=== PATIENT | male | born 1965 | race African-American/Black ===

== ENCOUNTER 2017-09-22 13:06 | Emergency (ER) | payer OTHER ==
[~2017-09-22] VITALS: Ht 188 cm; Wt 91.0 kg
[2017-09-22] MEDS ORDERED: IPRATROPIUM/ALBUTEROL 0.5-3(2.5)MG/3ML NEB HHN ONE (13:30)
[2017-09-22 14:33] LABS: HEMATOCRIT. 44.3 % (42.0-52.0); HEMOGLOBIN. 14.7 g/dL (14.0-18.0); MEAN CORPUSCULAR HEMOGLOBIN 29.4 pg (28.0-32.0); MEAN CORPUSCULAR VOLUME 88.6 fL (80.0-94.0); MEAN PLATELET VOLUME 9.3 fl (7.4-10.4); PLATELET 155 x1000/uL (130-400); RED BLOOD CELL COUNT 4.99 mill/uL (4.7-6.1); RED CELL DISTRIBUTION WIDTH 14.8 % (11.6-14.6)
[2017-09-22 14:39] LABS: CHLORIDE 104 mEq/L (98-107)
[2017-09-22 14:43] LABS: INR 1.1; PARTIAL THROMBOPLASTIN TIME 27.2 sec (23.4-31.0)
[2017-09-22] MEDS ORDERED: ALBUTEROL (0.083%) 2.5MG/3ML NEB HHN STA (14:54)
[2017-09-22 15:19] LABS: PLATELET ESTIMATE NORMAL
[2017-09-22 15:40] LABS: CLARITY URINE CLEAR (CLEAR); COLOR URINE YELLOW (YELLOW); KETONES URINE TRACE (NEGATIVE); LEUKOCYTE ESTERASE URINE NEGATIVE (NEGATIVE); NITRITE URINE NEGATIVE (NEGATIVE); OCCULT BLOOD URINE NEGATIVE (NEGATIVE); PH URINE 6.5 (4.5-8.0); PROTEIN URINE TRACE (NEGATIVE); SPECIFIC GRAVITY URINE 1.029 (1.005-1.030)
[2017-09-22] MEDS ORDERED: PREDNISONE 20MG TABLET PO ONE (15:45)
[2017-09-22 18:06] VITALS: BP 103/76
== END 2017-09-22 18:10 | disposition home or self-care (01) ==
LOC: ER 13:54 → CANBEDREQ 16:25 → ER 18:10
DX: J45.909 Unspecified asthma, uncomplicated (principal); E11.9 Type 2 diabetes mellitus without complications; I10 Essential (primary) hypertension; Z95.0 Presence of cardiac pacemaker; Z88.0 Allergy status to penicillin
CPT/HCPCS: 36415; 71045; 80053; 81003; 83690; 83880; 84484; 85025; 85610; 85730; 93005; 94640; 99285; J7512; J7611; J7620; Z7610

== ENCOUNTER 2018-10-30 08:12 | Inpatient (IN) | payer OTHER ==
[~2018-10-30] VITALS: Ht 188 cm; Wt 89.6 kg
[2018-10-30 09:07] LABS: CHLORIDE 97 mEq/L (98-107)
[2018-10-30 09:09] LABS: BASOPHILS % 1.3 % (0.0-2.0); EOSINOPHILS % 5.1 % (0.0-5.0); HEMATOCRIT. 40.3 % (42.0-52.0); HEMOGLOBIN. 13.1 g/dL (14.0-18.0); LYMPHOCYTES % 22.7 % (20.0-50.0); MEAN CORPUSCULAR HEMOGLOBIN 30.4 pg (28.0-32.0); MEAN CORPUSCULAR VOLUME 93.8 fL (80.0-94.0); MEAN PLATELET VOLUME 9.7 fl (7.4-10.4); NEUTROPHILS % 59.9 % (40.0-76.0); PLATELET 194 x1000/uL (130-400); RED CELL DISTRIBUTION WIDTH 15.4 % (11.6-14.6)
[2018-10-30] MEDS ORDERED: METHYLPREDNISOLONE SOD SUCC 125 MG/2 ML VIAL IV ONE (09:30)
[2018-10-30] MEDS ORDERED: SODIUM CHLORIDE 0.9% 1000ML BAG (SEPSIS BOLUS) IV ONE (09:30)
[2018-10-30] MEDS ORDERED: ALBUTEROL (0.5%) 2.5MG/0.5ML NEB HHN ONE (09:30)
[2018-10-30] MEDS ORDERED: FUROSEMIDE 40MG/4ML VIAL IVP ONE (09:45)
[2018-10-30] MEDS ORDERED: NOREPINEPHRINE 4MG/250ML PMX 250 ML IV ONE (10:30)
[2018-10-30 11:29] LABS: INR 1.3
[2018-10-30 12:00] VITALS: BP 84/57
[2018-10-30] MEDS ORDERED: ACETAMINOPHEN 325MG TABLET PO PRN (13:00)
[2018-10-30] MEDS ORDERED: FURO20TA4 MT (13:25)
[2018-10-30] MEDS ORDERED: FURO40TA5 PO (13:25)
[2018-10-30] MEDS ORDERED: ATOR20TA65 MT (13:25)
[2018-10-30] MEDS ORDERED: AMIO100T4 PO (13:25)
[2018-10-30] MEDS ORDERED: SUCR1TAB MT (13:25)
[2018-10-30] MEDS ORDERED: PROP150T3 PO (13:25)
[2018-10-30] MEDS ORDERED: SACU1TAB7 MT (13:25)
[2018-10-30] MEDS ORDERED: MIDO10TA MT (13:25)
[2018-10-30] MEDS ORDERED: PANT40TA4 MT (13:25)
[2018-10-30] MEDS ORDERED: CHOL400T PO (13:25)
[2018-10-30 14:00] VITALS: BP 97/70
[2018-10-30] MEDS ORDERED: METHYLPREDNISOLONE SOD SUCC 40 MG/ML VIAL IV SCH (14:00)
[2018-10-30] MEDS ORDERED: DOBUTAMINE HCL 500 MG in DEXT 5% WATER 210 ML IV SCH (14:30)
[2018-10-30 16:00] VITALS: BP 82/57
[2018-10-30] MEDS ORDERED: BICT1TAB PO (16:16)
[2018-10-30] MEDS: IPRATROPIUM/ALBUTEROL 0.5-3(2.5)MG/3ML NEB HHN PRN ×2 (16:37→20:25)
[2018-10-30] MEDS: ENOXAPARIN 40MG/0.4ML SYR SUBCUT SCH (16:38)
[2018-10-30] MEDS: MONTELUKAST SODIUM 10MG TABLET PO SCH (17:43)
[2018-10-30] MEDS: SUCRALFATE 1G TABLET PO SCH (17:43)
[2018-10-30 18:00] VITALS: BP 89/56
[2018-10-30 18:52] LABS: CLARITY URINE CLEAR (CLEAR); COLOR URINE DARK YELLOW (YELLOW); KETONES URINE TRACE (NEGATIVE); LEUKOCYTE ESTERASE URINE NEGATIVE (NEGATIVE); NITRITE URINE NEGATIVE (NEGATIVE); OCCULT BLOOD URINE NEGATIVE (NEGATIVE); PROTEIN URINE 1+ (NEGATIVE); SPECIFIC GRAVITY URINE 1.016 (1.005-1.030)
[2018-10-30 19:15] LABS: *AMPHETAMINES SCREEN URINE NEGATIVE (NEGATIVE); *BARBITURATES SCREEN URINE NEGATIVE (NEGATIVE); *BENZODIAZEPINES SCREEN URINE NEGATIVE (NEGATIVE); *COCAINE SCREEN URINE NEGATIVE (NEGATIVE); METHADONE URINE SCREEN NEGATIVE (NEGATIVE); OPIATES URINE SCREEN NEGATIVE (NEGATIVE)
[2018-10-30 19:16] LABS: CANNABINOID URINE SCREEN NEGATIVE (NEGATIVE); PHENCYCLIDINE URINE SCREEN NEGATIVE (NEGATIVE)
[2018-10-30] MEDS: BUDESONIDE 0.5MG/2ML NEB HHN SCH (20:25)
[2018-10-30 20:44] VITALS: BP 78/53
[2018-10-30] MEDS ORDERED: ZOLPIDEM TARTRATE 5MG TABLET PO PRN (21:00)
[2018-10-30] MEDS: FUROSEMIDE 40MG/4ML VIAL IVP SCH (21:23)
[2018-10-30] MEDS: FAMOTIDINE 20MG/2ML VIAL IV SCH (21:23)
[2018-10-30] MEDS: DOPAMINE 400MG/250ML PREMIX 250 ML IV SCH (21:24)
[2018-10-31] VITALS (13 sets, daily range): BP systolic 80–112; BP diastolic 49–75
[2018-10-31 07:00] LABS: BASOPHILS % 0.1 % (0.0-2.0); HEMATOCRIT. 35.5 % (42.0-52.0); HEMOGLOBIN. 11.9 g/dL (14.0-18.0); LYMPHOCYTES % 7.4 % (20.0-50.0); MEAN CORPUSCULAR HEMOGLOBIN 31.1 pg (28.0-32.0); MEAN CORPUSCULAR VOLUME 92.6 fL (80.0-94.0); MEAN PLATELET VOLUME 9.5 fl (7.4-10.4); MONOCYTES % 4.6 % (2.0-8.0); NEUTROPHILS % 87.9 % (40.0-76.0); PLATELET 174 x1000/uL (130-400); RED BLOOD CELL COUNT 3.83 mill/uL (4.7-6.1); RED CELL DISTRIBUTION WIDTH 14.9 % (11.6-14.6)
[2018-10-31] MEDS: FUROSEMIDE 40MG/4ML VIAL IVP SCH ×3 (08:48→21:00)
[2018-10-31] MEDS: FAMOTIDINE 20MG/2ML VIAL IV SCH ×2 (08:48→20:32)
[2018-10-31] MEDS: SUCRALFATE 1G TABLET PO SCH ×3 (08:48→18:11)
[2018-10-31] MEDS: ENOXAPARIN 40MG/0.4ML SYR SUBCUT SCH (08:49)
[2018-10-31] MEDS: AMIODARONE HCL 200 MG TABLET PO SCH (08:50)
[2018-10-31] MEDS ORDERED: FUROSEMIDE 40MG/4ML VIAL IVP SCH (09:00)
[2018-10-31 09:36] LABS: PHOSPHORUS 3.7 mg/dL (2.5-4.9)
[2018-10-31] MEDS ORDERED: ENOXAPARIN 60MG/0.6ML SYR SUBCUT NR (11:45)
[2018-10-31] MEDS: BUDESONIDE 0.5MG/2ML NEB HHN SCH ×2 (12:11→20:30)
[2018-10-31] MEDS: IPRATROPIUM/ALBUTEROL 0.5-3(2.5)MG/3ML NEB HHN PRN (12:11)
[2018-10-31] MEDS: DOBUTAMINE 250MG PREMIX 250 ML IV PRN (13:05)
[2018-10-31] MEDS: MONTELUKAST SODIUM 10MG TABLET PO SCH (18:11)
[2018-10-31] MEDS: APIXABAN 5 MG TABLET PO SCH (20:32)
[2018-10-31] MEDS: LORAZEPAM 1MG TABLET PO PRN (20:32)
[2018-10-31] MEDS: DOPAMINE 400MG/250ML PREMIX 250 ML IV SCH (20:43)
[2018-10-31] MEDS ORDERED: ENOXAPARIN 100MG/ML SYR SUBCUT SCH (21:00)
[2018-11-01] VITALS (13 sets, daily range): BP systolic 92–114; BP diastolic 49–69
[2018-11-01 06:35] LABS: EOSINOPHILS % 2.3 % (0.0-5.0); HEMATOCRIT. 37.1 % (42.0-52.0); HEMOGLOBIN. 12.4 g/dL (14.0-18.0); LYMPHOCYTES % 10.8 % (20.0-50.0); MEAN CORPUSCULAR HEMOGLOBIN 31.1 pg (28.0-32.0); MEAN CORPUSCULAR VOLUME 92.7 fL (80.0-94.0); MEAN PLATELET VOLUME 9.2 fl (7.4-10.4); MONOCYTES % 9.1 % (2.0-8.0); NEUTROPHILS % 76.8 % (40.0-76.0); PLATELET 177 x1000/uL (130-400); RED BLOOD CELL COUNT 3.99 mill/uL (4.7-6.1); RED CELL DISTRIBUTION WIDTH 15.1 % (11.6-14.6)
[2018-11-01 07:37] LABS: PHOSPHORUS 4.4 mg/dL (2.5-4.9)
[2018-11-01] MEDS: AMIODARONE HCL 200 MG TABLET PO SCH (09:00)
[2018-11-01 09:13] LABS: ABSOLUTE LYMPHOCYTES 0.7 x10E3/uL (0.7-3.1); ABSOLUTE MONOCYTES 0.1 x10E3/uL (0.1-0.9); ABSOLUTE NEUTROPHILS 3.6 x10E3/uL (1.4-7.0); BASOPHILS 1 % (Not Estab.); HEMATOCRIT 41.2 % (37.5-51.0); HEMOGLOBIN 12.9 g/dL (13.0-17.7); IMMATURE GRANULOCYTES 0 % (Not Estab.); LYMPHOCYTES 16 % (Not Estab.); MEAN CORPUSCULAR HEMOGLOBIN 29.6 pg (26.6-33.0); MEAN CORPUSCULAR HGB CONC. 31.3 g/dL (31.5-35.7); MEAN CORPUSCULAR VOLUME 95 fL (79-97); MONOCYTES 3 % (Not Estab.); NEUTROPHILS 80 % (Not Estab.); PLATELETS 205 x10E3/uL (150-379); RBC 4.36 x10E6/uL (4.14-5.80); RED CELL DISTRIBUTION WIDTH 15.4 % (12.3-15.4); WBC 4.4 x10E3/uL (3.4-10.8)
[2018-11-01] MEDS: BUDESONIDE 0.5MG/2ML NEB HHN SCH ×2 (09:23→20:34)
[2018-11-01] MEDS: FAMOTIDINE 20MG/2ML VIAL IV SCH ×2 (10:43→21:04)
[2018-11-01] MEDS: SUCRALFATE 1G TABLET PO SCH ×3 (10:43→17:28)
[2018-11-01] MEDS: APIXABAN 5 MG TABLET PO SCH ×2 (10:43→21:04)
[2018-11-01] MEDS: FUROSEMIDE 100MG/10ML VIAL IVP SCH (11:49)
[2018-11-01 13:12] LABS: % CD 4 POS. LYMPHOCYTES 10.3 % (30.8-58.5); % CD 8 POS. LYMPH 73.3 % (12.0-35.5); ABSOLUTE CD 3 581 /uL (622-2402); ABSOLUTE CD 4 HELPER 72 /uL (359-1519); ABSOLUTE CD 8 SUPPRESSOR 513 /uL (109-897); CD4/CD8 RATIO 0.14 (0.92-3.72)
[2018-11-01] MEDS: MONTELUKAST SODIUM 10MG TABLET PO SCH (17:28)
[2018-11-01] MEDS: SULFAMETHOXAZOLE/TRIMETHOPRIM 800/160MG TABLET PO SCH (17:28)
[2018-11-01] MEDS: DOBUTAMINE 250MG PREMIX 250 ML IV PRN (17:30)
[2018-11-01] MEDS: DOPAMINE 400MG/250ML PREMIX 250 ML IV SCH (17:31)
[2018-11-01] MEDS ORDERED: ATOR20TA65 MT (21:46)
[2018-11-01] MEDS ORDERED: BICT1TAB PO (21:47)
[2018-11-01] MEDS ORDERED: CHOL400C8 MT (21:49)
[2018-11-01] MEDS ORDERED: FURO-151 MT (21:50)
[2018-11-01] MEDS ORDERED: PROP150T3 MT (21:51)
[2018-11-01] MEDS ORDERED: ASPI-1158 MT (21:51)
[2018-11-01] MEDS ORDERED: ALBU90AE INH (21:53)
[2018-11-02] VITALS (12 sets, daily range): BP systolic 71–118; BP diastolic 43–70
[2018-11-02] MEDS: LORAZEPAM 1MG TABLET PO PRN (01:46)
[2018-11-02] MEDS: DOBUTAMINE 250MG PREMIX 250 ML IV PRN ×2 (02:46→13:25)
[2018-11-02 06:22] LABS: BASOPHILS % 1.3 % (0.0-2.0); EOSINOPHILS % 5.4 % (0.0-5.0); HEMATOCRIT. 39.6 % (42.0-52.0); HEMOGLOBIN. 12.8 g/dL (14.0-18.0); LYMPHOCYTES % 15.1 % (20.0-50.0); MEAN CORPUSCULAR HEMOGLOBIN 30.4 pg (28.0-32.0); MEAN CORPUSCULAR VOLUME 93.7 fL (80.0-94.0); MEAN PLATELET VOLUME 8.5 fl (7.4-10.4); NEUTROPHILS % 66.2 % (40.0-76.0); PLATELET 176 x1000/uL (130-400); RED BLOOD CELL COUNT 4.23 mill/uL (4.7-6.1); RED CELL DISTRIBUTION WIDTH 15.3 % (11.6-14.6)
[2018-11-02] MEDS: SULFAMETHOXAZOLE/TRIMETHOPRIM 800/160MG TABLET PO SCH (08:35)
[2018-11-02] MEDS: SUCRALFATE 1G TABLET PO SCH ×3 (08:35→17:25)
[2018-11-02] MEDS: FAMOTIDINE 20MG/2ML VIAL IV SCH ×2 (08:35→20:55)
[2018-11-02] MEDS: FUROSEMIDE 100MG/10ML VIAL IVP SCH (08:35)
[2018-11-02] MEDS: AMIODARONE HCL 200 MG TABLET PO SCH (08:35)
[2018-11-02] MEDS: APIXABAN 5 MG TABLET PO SCH ×2 (08:38→20:55)
[2018-11-02] MEDS: DOPAMINE 400MG/250ML PREMIX 250 ML IV SCH (09:19)
[2018-11-02] MEDS: BUDESONIDE 0.5MG/2ML NEB HHN SCH (09:55)
[2018-11-02] MEDS: IPRATROPIUM/ALBUTEROL 0.5-3(2.5)MG/3ML NEB HHN PRN ×2 (09:55→21:31)
[2018-11-02] MEDS: MONTELUKAST SODIUM 10MG TABLET PO SCH (17:25)
[2018-11-03] VITALS (12 sets, daily range): BP systolic 77–106; BP diastolic 48–65
[2018-11-03] MEDS: DOBUTAMINE 250MG PREMIX 250 ML IV PRN (00:51)
[2018-11-03] MEDS: LORAZEPAM 1MG TABLET PO PRN (00:58)
[2018-11-03 06:10] LABS: BASOPHILS % 1.2 % (0.0-2.0); EOSINOPHILS % 6.7 % (0.0-5.0); HEMATOCRIT. 37.9 % (42.0-52.0); HEMOGLOBIN. 12.4 g/dL (14.0-18.0); LYMPHOCYTES % 18.3 % (20.0-50.0); MEAN CORPUSCULAR HEMOGLOBIN 30.4 pg (28.0-32.0); MEAN CORPUSCULAR VOLUME 93.1 fL (80.0-94.0); MEAN PLATELET VOLUME 8.4 fl (7.4-10.4); MONOCYTES % 13.9 % (2.0-8.0); NEUTROPHILS % 59.9 % (40.0-76.0); PLATELET 180 x1000/uL (130-400); RED BLOOD CELL COUNT 4.07 mill/uL (4.7-6.1); RED CELL DISTRIBUTION WIDTH 15.1 % (11.6-14.6)
[2018-11-03 08:29] LABS: CHLORIDE 100 mEq/L (98-107)
[2018-11-03] MEDS: IPRATROPIUM/ALBUTEROL 0.5-3(2.5)MG/3ML NEB HHN PRN ×2 (08:32→21:59)
[2018-11-03 08:36] LABS: PHOSPHORUS 3.2 mg/dL (2.5-4.9)
[2018-11-03] MEDS: FAMOTIDINE 20MG/2ML VIAL IV SCH ×2 (08:51→20:50)
[2018-11-03] MEDS: AMIODARONE HCL 200 MG TABLET PO SCH (08:52)
[2018-11-03] MEDS: SULFAMETHOXAZOLE/TRIMETHOPRIM 800/160MG TABLET PO SCH (08:52)
[2018-11-03] MEDS: SUCRALFATE 1G TABLET PO SCH ×3 (08:52→18:31)
[2018-11-03] MEDS: APIXABAN 5 MG TABLET PO SCH ×2 (08:52→20:50)
[2018-11-03] MEDS: FUROSEMIDE 100MG/10ML VIAL IVP SCH (08:52)
[2018-11-03] MEDS: DOPAMINE 400MG/250ML PREMIX 250 ML IV SCH (15:30)
[2018-11-03] MEDS: MONTELUKAST SODIUM 10MG TABLET PO SCH (16:45)
[2018-11-03] MEDS: MAGNESIUM/ALUMINUM HYDROXIDE/SIMETHICONE 30ML UDC PO PRN ×2 (16:45→22:06)
[2018-11-04] VITALS (14 sets, daily range): BP systolic 66–122; BP diastolic 46–67
[2018-11-04] MEDS: LORAZEPAM 1MG TABLET PO PRN (01:29)
[2018-11-04] MEDS: IPRATROPIUM/ALBUTEROL 0.5-3(2.5)MG/3ML NEB HHN PRN ×4 (04:59→21:11)
[2018-11-04 06:49] LABS: BASOPHILS % 1.1 % (0.0-2.0); EOSINOPHILS % 1.5 % (0.0-5.0); HEMATOCRIT. 38.6 % (42.0-52.0); HEMOGLOBIN. 12.6 g/dL (14.0-18.0); LYMPHOCYTES % 20.9 % (20.0-50.0); MEAN CORPUSCULAR HEMOGLOBIN 30.3 pg (28.0-32.0); MEAN CORPUSCULAR VOLUME 93.1 fL (80.0-94.0); MEAN PLATELET VOLUME 9.4 fl (7.4-10.4); MONOCYTES % 11.9 % (2.0-8.0); NEUTROPHILS % 64.6 % (40.0-76.0); PLATELET 194 x1000/uL (130-400); RED BLOOD CELL COUNT 4.15 mill/uL (4.7-6.1); RED CELL DISTRIBUTION WIDTH 15.1 % (11.6-14.6)
[2018-11-04 07:13] LABS: PHOSPHORUS 2.8 mg/dL (2.5-4.9)
[2018-11-04] MEDS: FAMOTIDINE 20MG/2ML VIAL IV SCH ×2 (08:51→21:02)
[2018-11-04] MEDS: SUCRALFATE 1G TABLET PO SCH ×3 (08:52→17:56)
[2018-11-04] MEDS: SULFAMETHOXAZOLE/TRIMETHOPRIM 800/160MG TABLET PO SCH (08:52)
[2018-11-04] MEDS: APIXABAN 5 MG TABLET PO SCH ×2 (08:52→21:02)
[2018-11-04] MEDS: AMIODARONE HCL 200 MG TABLET PO SCH (08:52)
[2018-11-04] MEDS: MAGNESIUM/ALUMINUM HYDROXIDE/SIMETHICONE 30ML UDC PO PRN (09:51)
[2018-11-04] MEDS ORDERED: FUROSEMIDE 40MG/4ML VIAL IVP SCH (12:00)
[2018-11-04] MEDS: MONTELUKAST SODIUM 10MG TABLET PO SCH (17:56)
[2018-11-04] MEDS: FUROSEMIDE 40MG/4ML VIAL IVP SCH (17:56)
[2018-11-05] VITALS (8 sets, daily range): BP systolic 81–98; BP diastolic 40–64
[2018-11-05] MEDS: IPRATROPIUM/ALBUTEROL 0.5-3(2.5)MG/3ML NEB HHN PRN ×3 (01:14→10:30)
[2018-11-05 06:49] LABS: BASOPHILS % 0.9 % (0.0-2.0); EOSINOPHILS % 0.6 % (0.0-5.0); HEMATOCRIT. 36.8 % (42.0-52.0); HEMOGLOBIN. 12.1 g/dL (14.0-18.0); LYMPHOCYTES % 15.4 % (20.0-50.0); MEAN CORPUSCULAR HEMOGLOBIN 30.6 pg (28.0-32.0); MEAN CORPUSCULAR VOLUME 92.8 fL (80.0-94.0); MONOCYTES % 9.9 % (2.0-8.0); NEUTROPHILS % 73.2 % (40.0-76.0); PLATELET 193 x1000/uL (130-400); RED BLOOD CELL COUNT 3.97 mill/uL (4.7-6.1)
[2018-11-05 07:15] LABS: CHLORIDE 94 mEq/L (98-107)
[2018-11-05] MEDS: FUROSEMIDE 40MG/4ML VIAL IVP SCH (08:28)
[2018-11-05] MEDS: SUCRALFATE 1G TABLET PO SCH ×2 (08:29→12:32)
[2018-11-05] MEDS: AMIODARONE HCL 200 MG TABLET PO SCH (08:29)
[2018-11-05] MEDS: FAMOTIDINE 20MG/2ML VIAL IV SCH (08:29)
[2018-11-05] MEDS: SULFAMETHOXAZOLE/TRIMETHOPRIM 800/160MG TABLET PO SCH (08:29)
[2018-11-05] MEDS: APIXABAN 5 MG TABLET PO SCH (09:19)
[2018-11-05] MEDS: MAGNESIUM/ALUMINUM HYDROXIDE/SIMETHICONE 30ML UDC PO PRN (10:09)
[2018-11-06] MEDS ORDERED: FAMOTIDINE 20MG/2ML VIAL IV SCH (09:00)
[2018-11-07] MEDS ORDERED: APIXABAN 5 MG TABLET PO SCH (20:00)
== END 2018-11-05 16:09 | disposition home or self-care (01) | DRG 469 ==
LOC: ER 08:12 → 5EST 10:09 → EDBEDREQ 10:11 → EDBEDREQSVC 10:11 → ENRESERV 11:28
PROVIDERS: ADMIT Internal Medicine; ATTEND Internal Medicine
PROC: 02HV33Z Insertion of Infusion Device into Superior Vena Cava, Percutaneous Approach (ICD-10-PCS; principal; 2018-10-30)
PROC: B548ZZA Ultrasonography of Superior Vena Cava, Guidance (ICD-10-PCS; 2018-10-30)
PROC: 05H533Z Insertion of Infusion Device into Right Subclavian Vein, Percutaneous Approach (ICD-10-PCS; 2018-11-01)
PROC: B546ZZA Ultrasonography of Right Subclavian Vein, Guidance (ICD-10-PCS; 2018-11-01)
DX: N17.0 Acute kidney failure with tubular necrosis (principal); J96.00 Acute respiratory failure, unspecified whether with hypoxia or hypercapnia; I50.43 Acute on chronic combined systolic (congestive) and diastolic (congestive) heart failure; I95.9 Hypotension, unspecified; B20 Human immunodeficiency virus [HIV] disease; E11.22 Type 2 diabetes mellitus with diabetic chronic kidney disease; I82.402 Acute embolism and thrombosis of unspecified deep veins of left lower extremity; E87.1 Hypo-osmolality and hyponatremia; I13.0 Hypertensive heart and chronic kidney disease with heart failure and stage 1 through stage 4 chronic kidney disease, or unspecified chronic kidney disease; I82.412 Acute embolism and thrombosis of left femoral vein; K21.9 Gastro-esophageal reflux disease without esophagitis; I42.0 Dilated cardiomyopathy; J45.901 Unspecified asthma with (acute) exacerbation; N18.2 Chronic kidney disease, stage 2 (mild); E87.6 Hypokalemia; I25.10 Atherosclerotic heart disease of native coronary artery without angina pectoris; I48.0 Paroxysmal atrial fibrillation; I34.0 Nonrheumatic mitral (valve) insufficiency; Z60.2 Problems related to living alone; I25.2 Old myocardial infarction; Z82.49 Family history of ischemic heart disease and other diseases of the circulatory system; Z95.810 Presence of automatic (implantable) cardiac defibrillator; Z88.0 Allergy status to penicillin; Z79.899 Other long term (current) drug therapy
CPT/HCPCS: 36415; 36569; 71045; 76770; 76937; 78580; 80048; 80061; 80076; 80305; 82550; 82570; 83605; 83735; 83880; 83935; 84100; 84484; 84540; 85379; 86359; 86360; 93005; 93306; 93970; 94640; 96372; 96374; 96375; 99291; C1725; J1250; J1265; J1650; J1940; J2930; J3490; J7030; J7040; J7060; J7620; J7626

== ENCOUNTER 2018-11-18 16:38 | Inpatient (IN) | payer OTHER ==
[~2018-11-18] VITALS: Ht 188 cm; Wt 137.0 kg
[~2018-11-18 16:38] MED LIST: ALBU90AE INH; AMIO100T4 PO; ATOR20TA65 MT; BICT1TAB PO; CHOL400C8 MT; FURO-151 MT; MIDO10TA MT; PANT40TA4 MT; PROP150T3 MT; SACU1TAB7 MT; SUCR1TAB MT
[2018-11-18] MEDS ORDERED: MORPHINE SULFATE 4 MG/ML CPJ (NOT FOR IM USE) IV STA (16:59)
[2018-11-18 17:33] LABS: CHLORIDE 101 mEq/L (98-107)
[2018-11-18 17:35] LABS: BASOPHILS % 1.2 % (0.0-2.0); EOSINOPHILS % 2.8 % (0.0-5.0); HEMATOCRIT. 38.5 % (42.0-52.0); HEMOGLOBIN. 12.5 g/dL (14.0-18.0); MEAN CORPUSCULAR HEMOGLOBIN 30.5 pg (28.0-32.0); MEAN CORPUSCULAR VOLUME 93.9 fL (80.0-94.0); MEAN PLATELET VOLUME 9.6 fl (7.4-10.4); MONOCYTES % 10.3 % (2.0-8.0); NEUTROPHILS % 63.7 % (40.0-76.0); PLATELET 185 x1000/uL (130-400); RED BLOOD CELL COUNT 4.11 mill/uL (4.7-6.1)
[2018-11-18] MEDS ORDERED: ASPIRIN 81MG TABLET PO ONE (17:45)
[2018-11-18] MEDS ORDERED: FUROSEMIDE 40MG/4ML VIAL IVP ONE (20:45)
[2018-11-19] VITALS (13 sets, daily range): BP systolic 84–112; BP diastolic 47–71
[2018-11-19] MEDS ORDERED: HYDROCODONE/ACETAMINOPHEN 5/325MG TABLET PO PRN (03:15)
[2018-11-19] MEDS ORDERED: ALBUTEROL 6.7GM HFA INHALER ORI PRN (03:15)
[2018-11-19] MEDS ORDERED: NON FORMULARY PATIENT HOME MED XX SCH (03:15)
[2018-11-19] MEDS: IPRATROPIUM/ALBUTEROL 0.5-3(2.5)MG/3ML NEB HHN PRN (04:49)
[2018-11-19] MEDS: PANTOPRAZOLE 40MG DR TABLET PO SCH (06:14)
[2018-11-19] MEDS: SUCRALFATE 1G TABLET PO SCH ×4 (06:14→21:43)
[2018-11-19] MEDS: MIDODRINE HCL 5MG TABLET PO SCH ×3 (06:14→21:44)
[2018-11-19] MEDS: CHOLECALCIFEROL (VIT D3) 400 UNIT TABLET PO SCH (08:52)
[2018-11-19] MEDS: AMIODARONE HCL 200 MG TABLET PO SCH (08:52)
[2018-11-19] MEDS: ENOXAPARIN 40MG/0.4ML SYR SUBCUT SCH (08:53)
[2018-11-19] MEDS: SACUBITRIL/VALSARTAN 49MG/51MG TABLET PO SCH ×2 (08:54→21:43)
[2018-11-19] MEDS ORDERED: FUROSEMIDE 40MG/4ML VIAL IVP SCH (09:00)
[2018-11-19] MEDS ORDERED: PROPAFENONE HCL 150MG TABLET PO SCH ×2 (09:00)
[2018-11-19] MEDS ORDERED: FUROSEMIDE 40MG TABLET PO SCH (09:00)
[2018-11-19 09:15] LABS: BG BASE EXCESS 0.5 mmol/L (-2.0-2.0); BG CARBOXYHEMOGLOBIN 0.7 % (0.5-1.5); BG DEOXYHEMOGLOBIN 6.3 % (0.0-5.0); BG FRACTION INSPIRED OXYGEN 21; BG HCO3 ACT 25.2 mmol/L (22.0-26.0); BG METHEMOGLOBIN 0.2 % (0.0-1.5); BG OXYGEN SATURATION 93.6 % (92.0-98.5); BG OXYHEMOGLOBIN 92.8 % (94.0-97.0); BG PCO2 41.1 mmHg (35.0-45.0); BG PH 7.406 (7.350-7.450); BG PO2 73.4 mmHg (75.0-100.0); BG SAMPLE SITE LEFT RADIAL; BG TOTAL HEMOGLOBIN 12.4 g/dL (12.0-18.0); BG VENT MODE ROOM AIR
[2018-11-19 09:24] LABS: BASOPHILS % 0.7 % (0.0-2.0); EOSINOPHILS % 4.7 % (0.0-5.0); HEMATOCRIT. 35.3 % (42.0-52.0); HEMOGLOBIN. 11.4 g/dL (14.0-18.0); LYMPHOCYTES % 13.9 % (20.0-50.0); MEAN CORPUSCULAR HEMOGLOBIN 30.3 pg (28.0-32.0); MEAN CORPUSCULAR VOLUME 93.9 fL (80.0-94.0); MEAN PLATELET VOLUME 9.4 fl (7.4-10.4); MONOCYTES % 10.5 % (2.0-8.0); NEUTROPHILS % 70.2 % (40.0-76.0); PLATELET 148 x1000/uL (130-400); RED BLOOD CELL COUNT 3.76 mill/uL (4.7-6.1); RED CELL DISTRIBUTION WIDTH 15.7 % (11.6-14.6)
[2018-11-19] MEDS: ALBUTEROL (0.083%) 2.5MG/3ML NEB HHN PRN (12:06)
[2018-11-19] MEDS: FUROSEMIDE 40MG/4ML VIAL IVP SCH ×2 (15:45→21:43)
[2018-11-19 23:43] LABS: *AMPHETAMINES SCREEN URINE NEGATIVE (NEGATIVE)
[2018-11-19 23:44] LABS: *BARBITURATES SCREEN URINE NEGATIVE (NEGATIVE); *BENZODIAZEPINES SCREEN URINE NEGATIVE (NEGATIVE); *COCAINE SCREEN URINE NEGATIVE (NEGATIVE); METHADONE URINE SCREEN NEGATIVE (NEGATIVE); OPIATES URINE SCREEN NEGATIVE (NEGATIVE); PHENCYCLIDINE URINE SCREEN NEGATIVE (NEGATIVE)
[2018-11-19 23:46] LABS: CANNABINOID URINE SCREEN NEGATIVE (NEGATIVE)
[2018-11-20] VITALS (12 sets, daily range): BP systolic 71–113; BP diastolic 38–76
[2018-11-20] MEDS: ALBUTEROL (0.083%) 2.5MG/3ML NEB HHN PRN (00:17)
[2018-11-20] MEDS: PANTOPRAZOLE 40MG DR TABLET PO SCH (06:16)
[2018-11-20] MEDS: SUCRALFATE 1G TABLET PO SCH ×4 (06:16→21:27)
[2018-11-20] MEDS: MIDODRINE HCL 5MG TABLET PO SCH ×2 (06:17→13:11)
[2018-11-20 06:43] LABS: BASOPHILS % 3.5 % (0.0-2.0); EOSINOPHILS % 6.4 % (0.0-5.0); HEMATOCRIT. 34.9 % (42.0-52.0); HEMOGLOBIN. 12.1 g/dL (14.0-18.0); LYMPHOCYTES % 23.6 % (20.0-50.0); MEAN CORPUSCULAR HEMOGLOBIN 32.3 pg (28.0-32.0); MEAN CORPUSCULAR VOLUME 92.9 fL (80.0-94.0); MEAN PLATELET VOLUME 9.6 fl (7.4-10.4); MONOCYTES % 11.6 % (2.0-8.0); NEUTROPHILS % 54.9 % (40.0-76.0); PLATELET 149 x1000/uL (130-400); RED BLOOD CELL COUNT 3.76 mill/uL (4.7-6.1); RED CELL DISTRIBUTION WIDTH 15.7 % (11.6-14.6)
[2018-11-20] MEDS: IPRATROPIUM/ALBUTEROL 0.5-3(2.5)MG/3ML NEB HHN PRN ×2 (08:43→21:33)
[2018-11-20] MEDS: CHOLECALCIFEROL (VIT D3) 400 UNIT TABLET PO SCH (09:00)
[2018-11-20] MEDS: AMIODARONE HCL 200 MG TABLET PO SCH (09:00)
[2018-11-20] MEDS: SACUBITRIL/VALSARTAN 49MG/51MG TABLET PO SCH ×2 (09:00→10:04)
[2018-11-20] MEDS: FUROSEMIDE 40MG/4ML VIAL IVP SCH ×3 (09:00→16:38)
[2018-11-20] MEDS: ENOXAPARIN 40MG/0.4ML SYR SUBCUT SCH (09:00)
[2018-11-20] MEDS ORDERED: DOPAMINE 800MG PREMIX (DOUBLE) 250 ML IV SCH (16:00)
[2018-11-20] MEDS: APIXABAN 5 MG TABLET PO SCH (21:27)
[2018-11-21] VITALS (12 sets, daily range): BP systolic 84–103; BP diastolic 53–75
[2018-11-21] MEDS: SUCRALFATE 1G TABLET PO SCH ×4 (05:58→20:59)
[2018-11-21] MEDS: PANTOPRAZOLE 40MG DR TABLET PO SCH (05:58)
[2018-11-21 07:12] LABS: BASOPHILS % 1.3 % (0.0-2.0); EOSINOPHILS % 5.4 % (0.0-5.0); HEMATOCRIT. 36.1 % (42.0-52.0); HEMOGLOBIN. 11.8 g/dL (14.0-18.0); LYMPHOCYTES % 17.2 % (20.0-50.0); MEAN CORPUSCULAR HEMOGLOBIN 30.3 pg (28.0-32.0); MEAN CORPUSCULAR VOLUME 92.9 fL (80.0-94.0); MEAN PLATELET VOLUME 9.9 fl (7.4-10.4); NEUTROPHILS % 66.1 % (40.0-76.0); PLATELET 144 x1000/uL (130-400); RED BLOOD CELL COUNT 3.88 mill/uL (4.7-6.1)
[2018-11-21] MEDS: IPRATROPIUM/ALBUTEROL 0.5-3(2.5)MG/3ML NEB HHN PRN ×3 (08:43→21:28)
[2018-11-21] MEDS: ONDANSETRON HCL 4MG/2ML INJ IV PRN (08:57)
[2018-11-21] MEDS: FUROSEMIDE 40MG/4ML VIAL IVP SCH (08:57)
[2018-11-21] MEDS: AMIODARONE HCL 200 MG TABLET PO SCH (08:58)
[2018-11-21] MEDS: CHOLECALCIFEROL (VIT D3) 400 UNIT TABLET PO SCH (08:58)
[2018-11-21] MEDS: APIXABAN 5 MG TABLET PO SCH ×2 (08:58→20:59)
[2018-11-21] MEDS: PROPAFENONE HCL 150MG TABLET PO SCH ×2 (09:01→16:34)
[2018-11-21] MEDS: POTASSIUM CHLORIDE 20MEQ TABLET SR PO SCH (12:12)
[2018-11-21] MEDS ORDERED: SODIUM CHLORIDE 0.9% 250 ML IV ONE (13:00)
[2018-11-21] MEDS: DOBUTAMINE HCL 500 MG in DEXT 5% WATER 210 ML IV SCH (13:18)
[2018-11-21] MEDS: FAMOTIDINE 20MG TABLET PO SCH ×2 (13:24→20:59)
[2018-11-21] MEDS: ACETAMINOPHEN 325MG TABLET PO PRN (22:52)
[2018-11-22] VITALS (12 sets, daily range): BP systolic 85–111; BP diastolic 47–71
[2018-11-22] MEDS: DOBUTAMINE HCL 500 MG in DEXT 5% WATER 210 ML IV SCH (02:42)
[2018-11-22] MEDS: SUCRALFATE 1G TABLET PO SCH ×4 (06:39→21:47)
[2018-11-22 06:55] LABS: BASOPHILS % 1.5 % (0.0-2.0); EOSINOPHILS % 5.5 % (0.0-5.0); HEMATOCRIT. 33.5 % (42.0-52.0); LYMPHOCYTES % 18.4 % (20.0-50.0); MEAN CORPUSCULAR HEMOGLOBIN 30.9 pg (28.0-32.0); MEAN CORPUSCULAR VOLUME 93.9 fL (80.0-94.0); MEAN PLATELET VOLUME 9.9 fl (7.4-10.4); MONOCYTES % 13.3 % (2.0-8.0); NEUTROPHILS % 61.3 % (40.0-76.0); PLATELET 127 x1000/uL (130-400); RED BLOOD CELL COUNT 3.57 mill/uL (4.7-6.1); RED CELL DISTRIBUTION WIDTH 15.6 % (11.6-14.6)
[2018-11-22 07:20] LABS: CHLORIDE 103 mEq/L (98-107)
[2018-11-22] MEDS ORDERED: FAMOTIDINE 20MG TABLET PO SCH (09:00)
[2018-11-22] MEDS: FUROSEMIDE 40MG/4ML VIAL IVP SCH (09:11)
[2018-11-22] MEDS: POTASSIUM CHLORIDE 20MEQ TABLET SR PO SCH (09:15)
[2018-11-22] MEDS: FAMOTIDINE 20MG TABLET PO SCH ×2 (09:15→21:47)
[2018-11-22] MEDS: CHOLECALCIFEROL (VIT D3) 400 UNIT TABLET PO SCH (09:15)
[2018-11-22] MEDS: AMIODARONE HCL 200 MG TABLET PO SCH (09:15)
[2018-11-22] MEDS: APIXABAN 5 MG TABLET PO SCH ×2 (09:15→21:47)
[2018-11-22] MEDS: PROPAFENONE HCL 150MG TABLET PO SCH (09:16)
[2018-11-22] MEDS: ALBUTEROL (0.083%) 2.5MG/3ML NEB HHN PRN (14:45)
[2018-11-22] MEDS ORDERED: DOBUTAMINE HCL 500 MG in DEXT 5% WATER 210 ML IV SCH (17:00)
[2018-11-22] MEDS: LORAZEPAM 0.5MG TABLET PO PRN ×2 (17:41→21:47)
[2018-11-22] MEDS ORDERED: VALS160T28 PO (19:02)
[2018-11-22] MEDS ORDERED: TIOT18CA3 IH (19:04)
[2018-11-22] MEDS ORDERED: MOME13HF INH (19:04)
[2018-11-22] MEDS ORDERED: KALET2 MT (19:04)
[2018-11-22] MEDS ORDERED: ALD50 PO (19:06)
[2018-11-22] MEDS ORDERED: COR12 PO (19:06)
[2018-11-22] MEDS ORDERED: DAPS100T PO (19:06)
[2018-11-22] MEDS: DOBUTAMINE 250MG PREMIX 250 ML IV PRN (20:04)
[2018-11-23] VITALS (11 sets, daily range): BP systolic 89–110; BP diastolic 42–76
[2018-11-23] MEDS: ALBUTEROL (0.083%) 2.5MG/3ML NEB HHN PRN ×2 (01:27→20:39)
[2018-11-23] MEDS: SUCRALFATE 1G TABLET PO SCH ×4 (06:40→21:49)
[2018-11-23 07:09] LABS: EOSINOPHILS % 7.9 % (0.0-5.0); HEMATOCRIT. 33.7 % (42.0-52.0); HEMOGLOBIN. 11.3 g/dL (14.0-18.0); MEAN CORPUSCULAR HEMOGLOBIN 31.1 pg (28.0-32.0); MEAN CORPUSCULAR VOLUME 93.2 fL (80.0-94.0); MEAN PLATELET VOLUME 9.6 fl (7.4-10.4); NEUTROPHILS % 55.1 % (40.0-76.0); PLATELET 132 x1000/uL (130-400); RED BLOOD CELL COUNT 3.61 mill/uL (4.7-6.1); RED CELL DISTRIBUTION WIDTH 16.1 % (11.6-14.6)
[2018-11-23 08:32] LABS: CHLORIDE 103 mEq/L (98-107)
[2018-11-23] MEDS: AMIODARONE HCL 200 MG TABLET PO SCH (08:46)
[2018-11-23] MEDS: FAMOTIDINE 20MG TABLET PO SCH ×2 (08:46→21:49)
[2018-11-23] MEDS: APIXABAN 5 MG TABLET PO SCH ×2 (08:47→21:49)
[2018-11-23] MEDS: CHOLECALCIFEROL (VIT D3) 400 UNIT TABLET PO SCH (08:47)
[2018-11-23] MEDS: FUROSEMIDE 40MG/4ML VIAL IVP SCH ×2 (08:47→18:11)
[2018-11-23] MEDS: POTASSIUM CHLORIDE 20MEQ TABLET SR PO SCH (08:47)
[2018-11-23] MEDS: DOBUTAMINE 250MG PREMIX 250 ML IV PRN (11:37)
[2018-11-23] MEDS: LORAZEPAM 0.5MG TABLET PO PRN (14:27)
[2018-11-23] MEDS: ZOLPIDEM TARTRATE 5MG TABLET PO PRN (21:49)
[2018-11-24] VITALS (13 sets, daily range): BP systolic 95–124; BP diastolic 30–79
[2018-11-24] MEDS: ALBUTEROL (0.083%) 2.5MG/3ML NEB HHN PRN (04:39)
[2018-11-24] MEDS: DOBUTAMINE 250MG PREMIX 250 ML IV PRN (04:56)
[2018-11-24] MEDS: SUCRALFATE 1G TABLET PO SCH ×4 (06:43→21:04)
[2018-11-24] MEDS: LORAZEPAM 0.5MG TABLET PO PRN (06:43)
[2018-11-24 06:58] LABS: BASOPHILS % 1.4 % (0.0-2.0); EOSINOPHILS % 7.2 % (0.0-5.0); HEMATOCRIT. 33.1 % (42.0-52.0); HEMOGLOBIN. 10.8 g/dL (14.0-18.0); LYMPHOCYTES % 20.5 % (20.0-50.0); MEAN CORPUSCULAR HEMOGLOBIN 30.5 pg (28.0-32.0); MEAN CORPUSCULAR VOLUME 93.4 fL (80.0-94.0); MEAN PLATELET VOLUME 9.6 fl (7.4-10.4); MONOCYTES % 13.2 % (2.0-8.0); NEUTROPHILS % 57.7 % (40.0-76.0); PLATELET 127 x1000/uL (130-400); RED BLOOD CELL COUNT 3.54 mill/uL (4.7-6.1); RED CELL DISTRIBUTION WIDTH 16.1 % (11.6-14.6)
[2018-11-24 07:01] LABS: CHLORIDE 102 mEq/L (98-107)
[2018-11-24] MEDS: CHOLECALCIFEROL (VIT D3) 400 UNIT TABLET PO SCH (08:28)
[2018-11-24] MEDS: FAMOTIDINE 20MG TABLET PO SCH ×2 (08:28→21:04)
[2018-11-24] MEDS: APIXABAN 5 MG TABLET PO SCH ×2 (08:28→21:04)
[2018-11-24] MEDS: AMIODARONE HCL 200 MG TABLET PO SCH (08:28)
[2018-11-24] MEDS: POTASSIUM CHLORIDE 20MEQ TABLET SR PO SCH (08:28)
[2018-11-24] MEDS: FUROSEMIDE 40MG/4ML VIAL IVP SCH ×2 (08:29→16:53)
[2018-11-24] MEDS: METOLAZONE 2.5MG TABLET PO SCH (09:32)
[2018-11-24] MEDS: DOPAMINE 800MG PREMIX (DOUBLE) 250 ML IV SCH (14:57)
[2018-11-24] MEDS: IPRATROPIUM/ALBUTEROL 0.5-3(2.5)MG/3ML NEB HHN PRN ×2 (15:16→21:17)
[2018-11-24] MEDS: DOBUTAMINE HCL 500 MG in DEXT 5% WATER 210 ML IV SCH (16:58)
[2018-11-24] MEDS ORDERED: DOBUTAMINE HCL 500 MG in DEXTROSE 5% WATER 250 ML IV SCH (21:00)
[2018-11-24] MEDS: ZOLPIDEM TARTRATE 5MG TABLET PO PRN (21:04)
[2018-11-25] VITALS (12 sets, daily range): BP systolic 88–130; BP diastolic 51–71
[2018-11-25] MEDS: IPRATROPIUM/ALBUTEROL 0.5-3(2.5)MG/3ML NEB HHN PRN ×5 (01:21→17:27)
[2018-11-25] MEDS: SUCRALFATE 1G TABLET PO SCH ×4 (06:20→20:57)
[2018-11-25] MEDS: FUROSEMIDE 40MG/4ML VIAL IVP SCH ×2 (08:41→17:26)
[2018-11-25] MEDS: METOLAZONE 2.5MG TABLET PO SCH (08:42)
[2018-11-25] MEDS: POTASSIUM CHLORIDE 20MEQ TABLET SR PO SCH (08:42)
[2018-11-25] MEDS: AMIODARONE HCL 200 MG TABLET PO SCH (08:42)
[2018-11-25] MEDS: CHOLECALCIFEROL (VIT D3) 400 UNIT TABLET PO SCH (08:42)
[2018-11-25] MEDS: APIXABAN 5 MG TABLET PO SCH ×2 (08:42→20:57)
[2018-11-25] MEDS: FAMOTIDINE 20MG TABLET PO SCH ×2 (08:45→20:57)
[2018-11-25] MEDS: DOBUTAMINE HCL 500 MG in DEXT 5% WATER 210 ML IV SCH ×2 (09:11→23:47)
[2018-11-25 10:34] LABS: BASOPHILS % 1.2 % (0.0-2.0); EOSINOPHILS % 5.2 % (0.0-5.0); HEMATOCRIT. 33.3 % (42.0-52.0); HEMOGLOBIN. 10.8 g/dL (14.0-18.0); LYMPHOCYTES % 14.6 % (20.0-50.0); MEAN CORPUSCULAR HEMOGLOBIN 30.3 pg (28.0-32.0); MEAN CORPUSCULAR VOLUME 93.1 fL (80.0-94.0); MEAN PLATELET VOLUME 9.3 fl (7.4-10.4); MONOCYTES % 10.2 % (2.0-8.0); NEUTROPHILS % 68.8 % (40.0-76.0); PLATELET 120 x1000/uL (130-400); RED BLOOD CELL COUNT 3.58 mill/uL (4.7-6.1); RED CELL DISTRIBUTION WIDTH 15.8 % (11.6-14.6)
[2018-11-25] MEDS: DOPAMINE 800MG PREMIX (DOUBLE) 250 ML IV SCH ×2 (14:00→15:22)
[2018-11-25] MEDS: LORAZEPAM 0.5MG TABLET PO PRN (15:35)
[2018-11-25] MEDS: ZOLPIDEM TARTRATE 5MG TABLET PO PRN (20:57)
[2018-11-26] VITALS (13 sets, daily range): BP systolic 91–114; BP diastolic 41–74
[2018-11-26] MEDS: IPRATROPIUM/ALBUTEROL 0.5-3(2.5)MG/3ML NEB HHN PRN ×2 (00:34→09:26)
[2018-11-26] MEDS: LORAZEPAM 0.5MG TABLET PO PRN (04:21)
[2018-11-26] MEDS: SUCRALFATE 1G TABLET PO SCH ×4 (05:52→21:09)
[2018-11-26] MEDS: METOLAZONE 2.5MG TABLET PO SCH (09:06)
[2018-11-26] MEDS: APIXABAN 5 MG TABLET PO SCH (09:06)
[2018-11-26] MEDS: POTASSIUM CHLORIDE 20MEQ TABLET SR PO SCH (09:06)
[2018-11-26] MEDS: FUROSEMIDE 40MG/4ML VIAL IVP SCH ×2 (09:06→17:04)
[2018-11-26] MEDS: CHOLECALCIFEROL (VIT D3) 400 UNIT TABLET PO SCH (09:06)
[2018-11-26] MEDS: FAMOTIDINE 20MG TABLET PO SCH (09:06)
[2018-11-26] MEDS: AMIODARONE HCL 200 MG TABLET PO SCH (09:07)
[2018-11-26] MEDS: IPRATROPIUM/ALBUTEROL 0.5-3(2.5)MG/3ML NEB HHN SCH ×3 (12:20→20:25)
[2018-11-26] MEDS: DOPAMINE 800MG PREMIX (DOUBLE) 250 ML IV SCH (14:07)
[2018-11-26] MEDS: DOBUTAMINE HCL 500 MG in DEXT 5% WATER 210 ML IV SCH (16:28)
[2018-11-26] MEDS ORDERED: ALPRAZOLAM 0.25 MG TABLET PO PRN (17:00)
[2018-11-26] MEDS ORDERED: ALPRAZOLAM 0.25 MG TABLET PO SCH (17:00)
[2018-11-26] MEDS: ALPRAZOLAM 0.25 MG TABLET PO PRN (17:05)
[2018-11-26] MEDS: PANTOPRAZOLE SODIUM 40 MG/VIAL IV SCH (17:22)
[2018-11-26 23:57] LABS: HEMOGLOBIN 11.5 g/dL (14.0-18.0)
[2018-11-27] VITALS (12 sets, daily range): BP systolic 84–109; BP diastolic 59–68
[2018-11-27] MEDS: IPRATROPIUM/ALBUTEROL 0.5-3(2.5)MG/3ML NEB HHN SCH ×6 (00:33→20:50)
[2018-11-27] MEDS: ALPRAZOLAM 0.25 MG TABLET PO PRN ×2 (00:52→21:45)
[2018-11-27 02:45] LABS: CLARITY URINE CLEAR (CLEAR); COLOR URINE YELLOW (YELLOW); KETONES URINE NEGATIVE (NEGATIVE); LEUKOCYTE ESTERASE URINE NEGATIVE (NEGATIVE); NITRITE URINE POSITIVE (NEGATIVE); OCCULT BLOOD URINE NEGATIVE (NEGATIVE); PH URINE 7.5 (4.5-8.0); PROTEIN URINE NEGATIVE (NEGATIVE); SPECIFIC GRAVITY URINE 1.009 (1.005-1.030)
[2018-11-27 06:48] LABS: BASOPHILS % 0.7 % (0.0-2.0); EOSINOPHILS % 3.4 % (0.0-5.0); HEMATOCRIT. 33.3 % (42.0-52.0); HEMOGLOBIN. 10.9 g/dL (14.0-18.0); LYMPHOCYTES % 13.5 % (20.0-50.0); MEAN CORPUSCULAR HEMOGLOBIN 30.4 pg (28.0-32.0); MEAN CORPUSCULAR VOLUME 93.1 fL (80.0-94.0); MEAN PLATELET VOLUME 9.2 fl (7.4-10.4); MONOCYTES % 11.9 % (2.0-8.0); NEUTROPHILS % 70.5 % (40.0-76.0); PLATELET 126 x1000/uL (130-400); RED BLOOD CELL COUNT 3.57 mill/uL (4.7-6.1); RED CELL DISTRIBUTION WIDTH 16.3 % (11.6-14.6)
[2018-11-27] MEDS: SUCRALFATE 1G TABLET PO SCH ×4 (06:49→21:45)
[2018-11-27 07:10] LABS: CHLORIDE 97 mEq/L (98-107)
[2018-11-27] MEDS: AMIODARONE HCL 200 MG TABLET PO SCH (08:06)
[2018-11-27] MEDS: POTASSIUM CHLORIDE 20MEQ TABLET SR PO SCH (08:06)
[2018-11-27] MEDS: CHOLECALCIFEROL (VIT D3) 400 UNIT TABLET PO SCH (08:06)
[2018-11-27] MEDS: FUROSEMIDE 40MG/4ML VIAL IVP SCH (08:06)
[2018-11-27] MEDS: METOLAZONE 2.5MG TABLET PO SCH (08:06)
[2018-11-27] MEDS: PANTOPRAZOLE SODIUM 40 MG/VIAL IV SCH ×2 (09:00→17:54)
[2018-11-27] MEDS ORDERED: DOPAMINE 800MG PREMIX (DOUBLE) 250 ML IV SCH (11:00)
[2018-11-27] MEDS: DOBUTAMINE HCL 500 MG in DEXT 5% WATER 210 ML IV SCH (12:03)
[2018-11-28] VITALS (15 sets, daily range): BP systolic 75–107; BP diastolic 45–78
[2018-11-28] MEDS: IPRATROPIUM/ALBUTEROL 0.5-3(2.5)MG/3ML NEB HHN SCH ×6 (00:06→20:55)
[2018-11-28] MEDS: DOBUTAMINE HCL 500 MG in DEXT 5% WATER 210 ML IV SCH (04:47)
[2018-11-28] MEDS: SUCRALFATE 1G TABLET PO SCH ×5 (06:31→22:27)
[2018-11-28 06:35] LABS: HEMATOCRIT. 34.4 % (42.0-52.0); HEMOGLOBIN. 11.5 g/dL (14.0-18.0); MEAN CORPUSCULAR HEMOGLOBIN 30.9 pg (28.0-32.0); MEAN CORPUSCULAR VOLUME 92.1 fL (80.0-94.0); MEAN PLATELET VOLUME 9.2 fl (7.4-10.4); PLATELET 128 x1000/uL (130-400); RED BLOOD CELL COUNT 3.73 mill/uL (4.7-6.1); RED CELL DISTRIBUTION WIDTH 16.3 % (11.6-14.6)
[2018-11-28 06:37] LABS: CHLORIDE 94 mEq/L (98-107)
[2018-11-28] MEDS ORDERED: DOPAMINE 800MG PREMIX (DOUBLE) 250 ML IV SCH (07:31)
[2018-11-28] MEDS ORDERED: DOBUTAMINE HCL 500 MG in DEXT 5% WATER 210 ML IV SCH (07:31)
[2018-11-28] MEDS: PANTOPRAZOLE SODIUM 40 MG/VIAL IV SCH ×2 (08:41→18:16)
[2018-11-28] MEDS: AMIODARONE HCL 200 MG TABLET PO SCH (08:41)
[2018-11-28] MEDS: POTASSIUM CHLORIDE 20MEQ TABLET SR PO SCH (09:00)
[2018-11-28] MEDS: CHOLECALCIFEROL (VIT D3) 400 UNIT TABLET PO SCH (09:00)
[2018-11-28] MEDS ORDERED: SODIUM CHLORIDE 0.9% 250 ML IV SCH (10:00)
[2018-11-28] MEDS: ALPRAZOLAM 0.25 MG TABLET PO PRN ×2 (10:23→18:56)
[2018-11-28 16:16] LABS: PLATELET ESTIMATE SLIGHTLY DECREASED
[2018-11-28] MEDS: DOPAMINE 800MG PREMIX (DOUBLE) 250 ML IV SCH (19:00)
[2018-11-29] VITALS (18 sets, daily range): BP systolic 80–106; BP diastolic 43–84
[2018-11-29] MEDS: IPRATROPIUM/ALBUTEROL 0.5-3(2.5)MG/3ML NEB HHN SCH ×6 (01:11→21:07)
[2018-11-29] MEDS: SUCRALFATE 1G TABLET PO SCH ×4 (06:31→21:37)
[2018-11-29] MEDS: ALPRAZOLAM 0.25 MG TABLET PO PRN ×2 (06:31→21:35)
[2018-11-29 07:30] LABS: BASOPHILS % 1.1 % (0.0-2.0); EOSINOPHILS % 0.2 % (0.0-5.0); HEMATOCRIT. 35.3 % (42.0-52.0); HEMOGLOBIN. 11.7 g/dL (14.0-18.0); LYMPHOCYTES % 16.8 % (20.0-50.0); MEAN CORPUSCULAR HEMOGLOBIN 30.8 pg (28.0-32.0); MEAN CORPUSCULAR VOLUME 93.3 fL (80.0-94.0); MEAN PLATELET VOLUME 10.2 fl (7.4-10.4); MONOCYTES % 13.1 % (2.0-8.0); NEUTROPHILS % 68.8 % (40.0-76.0); PLATELET 132 x1000/uL (130-400); RED BLOOD CELL COUNT 3.78 mill/uL (4.7-6.1)
[2018-11-29] MEDS: CHOLECALCIFEROL (VIT D3) 400 UNIT TABLET PO SCH (09:00)
[2018-11-29] MEDS: AMIODARONE HCL 200 MG TABLET PO SCH (09:00)
[2018-11-29] MEDS: POTASSIUM CHLORIDE 20MEQ TABLET SR PO SCH (09:00)
[2018-11-29] MEDS: DOPAMINE 800MG PREMIX (DOUBLE) 250 ML IV SCH (09:47)
[2018-11-29] MEDS: PANTOPRAZOLE SODIUM 40 MG/VIAL IV SCH (09:50)
[2018-11-29] MEDS ORDERED: FUROSEMIDE 40MG/4ML VIAL IVP SCH (10:15)
[2018-11-29] MEDS ORDERED: DOBUTAMINE HCL 500 MG in DEXT 5% WATER 210 ML IV SCH (10:15)
[2018-11-29] MEDS: DOBUTAMINE HCL 500 MG in DEXT 5% WATER 210 ML IV SCH (11:55)
[2018-11-29] MEDS ORDERED: SODIUM CHLORIDE 0.9% 250 ML IV ONE (13:30)
[2018-11-29 15:41] LABS: INR 2.2; PROTHROMBIN TIME 21.5 sec (9.6-11.0)
[2018-11-29 18:13] LABS: HEPATITIS B SURFACE ANTIGEN NEGATIVE
[2018-11-29 18:36] LABS: CLARITY URINE CLOUDY (CLEAR); COLOR URINE ORANGE (YELLOW); KETONES URINE NEGATIVE (NEGATIVE); LEUKOCYTE ESTERASE URINE 1+ (NEGATIVE); NITRITE URINE POSITIVE (NEGATIVE); OCCULT BLOOD URINE NEGATIVE (NEGATIVE); PROTEIN URINE 2+ (NEGATIVE); SPECIFIC GRAVITY URINE 1.022 (1.005-1.030)
[2018-11-29 18:42] LABS: HEPATITIS A AB IGM NEGATIVE (NEGATIVE)
[2018-11-29 18:47] LABS: UREA NITROGEN URINE RANDOM 488 mg/dL
[2018-11-29 18:54] LABS: SODIUM URINE RANDOM < 5 mEq/L
[2018-11-29] MEDS: BIKTARVY PO SCH (21:36)
[2018-11-29] MEDS ORDERED: APIXABAN 5 MG TABLET PO SCH (22:45)
[2018-11-29] MEDS ORDERED: APIXABAN 5 MG TABLET PO NR (23:00)
[2018-11-30] VITALS (15 sets, daily range): BP systolic 81–137; BP diastolic 24–68
[2018-11-30] MEDS: HYDROCODONE/ACETAMINOPHEN 5/325MG TABLET PO PRN ×2 (00:06→21:32)
[2018-11-30] MEDS: IPRATROPIUM/ALBUTEROL 0.5-3(2.5)MG/3ML NEB HHN SCH ×6 (00:58→21:31)
[2018-11-30] MEDS: DOPAMINE 800MG PREMIX (DOUBLE) 250 ML IV SCH (02:51)
[2018-11-30] MEDS: DOBUTAMINE HCL 500 MG in DEXT 5% WATER 210 ML IV SCH (05:20)
[2018-11-30 06:19] LABS: CHLORIDE 87 mEq/L (98-107)
[2018-11-30 06:25] LABS: BASOPHILS % 1.4 % (0.0-2.0); EOSINOPHILS % 4.2 % (0.0-5.0); HEMATOCRIT. 32.8 % (42.0-52.0); HEMOGLOBIN. 10.9 g/dL (14.0-18.0); LYMPHOCYTES % 10.7 % (20.0-50.0); MEAN CORPUSCULAR HEMOGLOBIN 30.4 pg (28.0-32.0); MEAN CORPUSCULAR VOLUME 92.1 fL (80.0-94.0); MEAN PLATELET VOLUME 10.3 fl (7.4-10.4); NEUTROPHILS % 70.7 % (40.0-76.0); PLATELET 111 x1000/uL (130-400); RED BLOOD CELL COUNT 3.57 mill/uL (4.7-6.1); RED CELL DISTRIBUTION WIDTH 16.1 % (11.6-14.6)
[2018-11-30 06:28] LABS: PHOSPHORUS 5.5 mg/dL (2.5-4.9)
[2018-11-30] MEDS: SUCRALFATE 1G TABLET PO SCH ×4 (06:35→21:31)
[2018-11-30 07:43] LABS: BG BASE EXCESS -1.7 mmol/L (-2.0-2.0); BG CARBOXYHEMOGLOBIN 0.3 % (0.5-1.5); BG DEOXYHEMOGLOBIN 6.2 % (0.0-5.0); BG HCO3 ACT 22.9 mmol/L (22.0-26.0); BG METHEMOGLOBIN 1.3 % (0.0-1.5); BG OXYGEN SATURATION 93.7 % (92.0-98.5); BG OXYHEMOGLOBIN 92.2 % (94.0-97.0); BG PCO2 38.3 mmHg (35.0-45.0); BG PH 7.395 (7.350-7.450); BG PO2 79.8 mmHg (75.0-100.0); BG SAMPLE SITE RIGHT RADIAL; BG TOTAL HEMOGLOBIN 12.1 g/dL (12.0-18.0); BG VENT MODE NASAL CANNULA
[2018-11-30] MEDS: TAMSULOSIN HCL 0.4MG SR CAPSULE PO SCH (08:06)
[2018-11-30] MEDS: APIXABAN 5 MG TABLET PO SCH (08:06)
[2018-11-30] MEDS: CHOLECALCIFEROL (VIT D3) 400 UNIT TABLET PO SCH (08:06)
[2018-11-30] MEDS: AMIODARONE HCL 200 MG TABLET PO SCH (08:06)
[2018-11-30] MEDS ORDERED: SODIUM CHLORIDE 0.9% 500 ML IV ONE (09:15)
[2018-11-30] MEDS ORDERED: LIDOCAINE HCL/PF 1% 2ML VIAL ONE (10:58)
[2018-11-30] MEDS: ONDANSETRON HCL 4MG/2ML INJ IV PRN (12:10)
[2018-11-30] MEDS: CALCIUM CARBONATE 500MG TABLET CHEW PO PRN (14:22)
[2018-11-30] MEDS: PANTOPRAZOLE 40MG DR TABLET PO SCH (21:33)
[2018-11-30] MEDS: BIKTARVY PO SCH (21:33)
[2018-12-01] VITALS (38 sets, daily range): BP systolic 48–109; BP diastolic 22–71
[2018-12-01] MEDS: DOBUTAMINE HCL 500 MG in DEXT 5% WATER 210 ML IV SCH ×2 (00:28→15:21)
[2018-12-01] MEDS: HYDROCODONE/ACETAMINOPHEN 5/325MG TABLET PO PRN ×2 (00:45→22:06)
[2018-12-01] MEDS: ALPRAZOLAM 0.25 MG TABLET PO PRN ×2 (00:47→19:17)
[2018-12-01] MEDS: IPRATROPIUM/ALBUTEROL 0.5-3(2.5)MG/3ML NEB HHN SCH ×7 (01:03→23:30)
[2018-12-01 06:24] LABS: CHLORIDE 85 mEq/L (98-107)
[2018-12-01 06:31] LABS: PHOSPHORUS 6.7 mg/dL (2.5-4.9)
[2018-12-01 06:34] LABS: BASOPHILS % 0.6 % (0.0-2.0); CREATINE KINASE 179 IU/L (39-308); EOSINOPHILS % 1.1 % (0.0-5.0); HEMATOCRIT. 33.2 % (42.0-52.0); HEMOGLOBIN. 11.1 g/dL (14.0-18.0); LYMPHOCYTES % 7.8 % (20.0-50.0); MEAN CORPUSCULAR HEMOGLOBIN 31.1 pg (28.0-32.0); MEAN CORPUSCULAR VOLUME 92.9 fL (80.0-94.0); MEAN PLATELET VOLUME 10.1 fl (7.4-10.4); NEUTROPHILS % 77.5 % (40.0-76.0); PLATELET 91 x1000/uL (130-400); RED BLOOD CELL COUNT 3.57 mill/uL (4.7-6.1)
[2018-12-01] MEDS: PANTOPRAZOLE 40MG DR TABLET PO SCH (06:50)
[2018-12-01] MEDS: SUCRALFATE 1G TABLET PO SCH ×4 (06:50→21:26)
[2018-12-01] MEDS ORDERED: BARIUM SULFATE 176 GM SUSP.RECON ONE (08:26)
[2018-12-01] MEDS ORDERED: EZ-HD SUSPENSION(BARIUM SULFATE 340GM) PO ONE (08:27)
[2018-12-01] MEDS: TAMSULOSIN HCL 0.4MG SR CAPSULE PO SCH (08:40)
[2018-12-01] MEDS: CHOLECALCIFEROL (VIT D3) 400 UNIT TABLET PO SCH (08:40)
[2018-12-01] MEDS ORDERED: FUROSEMIDE 100MG/10ML VIAL IVP NR ×2 (11:30→22:45)
[2018-12-01 12:19] LABS: INR 1.6; PROTHROMBIN TIME 16.3 sec (9.6-11.0)
[2018-12-01] MEDS: DOPAMINE 800MG PREMIX (DOUBLE) 250 ML IV SCH (19:43)
[2018-12-01] MEDS: BIKTARVY PO SCH (22:05)
[2018-12-01] MEDS: CALCIUM CARBONATE 500MG TABLET CHEW PO PRN (22:05)
[2018-12-02] VITALS (54 sets, daily range): BP systolic 35–121; BP diastolic 26–77
[2018-12-02] MEDS: IPRATROPIUM/ALBUTEROL 0.5-3(2.5)MG/3ML NEB HHN SCH ×5 (04:09→20:40)
[2018-12-02 05:57] LABS: HEMATOCRIT. 34.5 % (42.0-52.0); HEMOGLOBIN. 11.3 g/dL (14.0-18.0); MEAN CORPUSCULAR HEMOGLOBIN 30.5 pg (28.0-32.0); MEAN CORPUSCULAR VOLUME 92.5 fL (80.0-94.0); MEAN PLATELET VOLUME 10.4 fl (7.4-10.4); PLATELET 90 x1000/uL (130-400); RED BLOOD CELL COUNT 3.72 mill/uL (4.7-6.1); RED CELL DISTRIBUTION WIDTH 15.6 % (11.6-14.6)
[2018-12-02 06:02] LABS: CHLORIDE 87 mEq/L (98-107)
[2018-12-02 06:18] LABS: PHOSPHORUS 6.1 mg/dL (2.5-4.9)
[2018-12-02] MEDS: SUCRALFATE 1G TABLET PO SCH ×4 (07:58→21:51)
[2018-12-02] MEDS: ACETAMINOPHEN 325MG TABLET PO PRN (07:58)
[2018-12-02] MEDS: CHOLECALCIFEROL (VIT D3) 400 UNIT TABLET PO SCH (07:58)
[2018-12-02] MEDS: TAMSULOSIN HCL 0.4MG SR CAPSULE PO SCH (07:58)
[2018-12-02] MEDS: DOBUTAMINE HCL 500 MG in DEXT 5% WATER 210 ML IV SCH (07:59)
[2018-12-02 08:12] LABS: BG CARBOXYHEMOGLOBIN 0.6 % (0.5-1.5); BG DEOXYHEMOGLOBIN 7.6 % (0.0-5.0); BG FRACTION INSPIRED OXYGEN 24; BG HCO3 ACT 23.1 mmol/L (22.0-26.0); BG METHEMOGLOBIN 0.3 % (0.0-1.5); BG OXYGEN SATURATION 92.3 % (92.0-98.5); BG OXYHEMOGLOBIN 91.5 % (94.0-97.0); BG PCO2 45.4 mmHg (35.0-45.0); BG PH 7.324 (7.350-7.450); BG PO2 72.7 mmHg (75.0-100.0); BG SAMPLE SITE LEFT RADIAL; BG TOTAL HEMOGLOBIN 12.2 g/dL (12.0-18.0); BG VENT MODE NASAL CANNULA
[2018-12-02] MEDS: CALCIUM CARBONATE 500MG TABLET CHEW PO PRN (08:28)
[2018-12-02 11:03] LABS: PLATELET ESTIMATE DECREASED
[2018-12-02] MEDS ORDERED: MAGNESIUM/ALUMINUM HYDROXIDE/SIMETHICONE 30ML UDC PO SCH (11:15)
[2018-12-02] MEDS: DOPAMINE 800MG PREMIX (DOUBLE) 250 ML IV SCH (14:47)
[2018-12-02] MEDS: OMEPRAZOLE 20MG CAPSULE EXTENDED RELEASE PO SCH ×2 (14:50→21:51)
[2018-12-02] MEDS: ONDANSETRON HCL 4MG/2ML INJ IV PRN (18:08)
[2018-12-02] MEDS: BIKTARVY PO SCH (21:51)
[2018-12-03] VITALS (58 sets, daily range): BP systolic 71–187; BP diastolic 37–80
[2018-12-03] MEDS: IPRATROPIUM/ALBUTEROL 0.5-3(2.5)MG/3ML NEB HHN SCH ×6 (00:55→20:28)
[2018-12-03] MEDS: DOBUTAMINE HCL 500 MG in SODIUM CHLORIDE 0.9% 210 ML IV SCH ×3 (01:23→17:48)
[2018-12-03] MEDS: ALPRAZOLAM 0.25 MG TABLET PO PRN (02:14)
[2018-12-03] MEDS: HYDROCODONE/ACETAMINOPHEN 5/325MG TABLET PO PRN ×3 (03:53→21:43)
[2018-12-03 05:20] LABS: HEMATOCRIT. 33.2 % (42.0-52.0); HEMOGLOBIN. 11.1 g/dL (14.0-18.0); MEAN CORPUSCULAR HEMOGLOBIN 30.7 pg (28.0-32.0); MEAN PLATELET VOLUME 11.3 fl (7.4-10.4); PLATELET 83 x1000/uL (130-400); RED CELL DISTRIBUTION WIDTH 15.6 % (11.6-14.6)
[2018-12-03 05:30] LABS: CHLORIDE 84 mEq/L (98-107)
[2018-12-03 05:46] LABS: PHOSPHORUS 6.4 mg/dL (2.5-4.9)
[2018-12-03 08:58] LABS: PLATELET ESTIMATE DECREASED
[2018-12-03] MEDS: DOPAMINE 800MG PREMIX (DOUBLE) 250 ML IV SCH (09:47)
[2018-12-03] MEDS: SUCRALFATE 1G TABLET PO SCH ×4 (10:17→20:43)
[2018-12-03] MEDS: CHOLECALCIFEROL (VIT D3) 400 UNIT TABLET PO SCH (10:17)
[2018-12-03] MEDS: TAMSULOSIN HCL 0.4MG SR CAPSULE PO SCH (10:17)
[2018-12-03] MEDS: OMEPRAZOLE 20MG CAPSULE EXTENDED RELEASE PO SCH ×2 (10:17→20:43)
[2018-12-03] MEDS: CALCIUM CARBONATE 500MG TABLET CHEW PO PRN (18:22)
[2018-12-03] MEDS: BIKTARVY PO SCH (20:43)
[2018-12-04] VITALS (85 sets, daily range): BP systolic 48–112; BP diastolic 17–81
[2018-12-04] MEDS: IPRATROPIUM/ALBUTEROL 0.5-3(2.5)MG/3ML NEB HHN SCH ×6 (00:15→16:00)
[2018-12-04] MEDS: DOBUTAMINE HCL 500 MG in SODIUM CHLORIDE 0.9% 210 ML IV SCH (00:47)
[2018-12-04] MEDS: ONDANSETRON HCL 4MG/2ML INJ IV PRN ×2 (03:08→21:35)
[2018-12-04] MEDS: DOPAMINE 800MG PREMIX (DOUBLE) 250 ML IV SCH ×3 (03:19→20:15)
[2018-12-04 05:27] LABS: BASOPHILS % 0.4 % (0.0-2.0); EOSINOPHILS % 2.6 % (0.0-5.0); HEMATOCRIT. 33.7 % (42.0-52.0); HEMOGLOBIN. 11.2 g/dL (14.0-18.0); LYMPHOCYTES % 7.1 % (20.0-50.0); MEAN CORPUSCULAR HEMOGLOBIN 30.6 pg (28.0-32.0); MEAN CORPUSCULAR VOLUME 92.2 fL (80.0-94.0); MONOCYTES % 9.7 % (2.0-8.0); NEUTROPHILS % 80.2 % (40.0-76.0); PLATELET 102 x1000/uL (130-400); RED BLOOD CELL COUNT 3.65 mill/uL (4.7-6.1); RED CELL DISTRIBUTION WIDTH 15.8 % (11.6-14.6)
[2018-12-04 05:46] LABS: CHLORIDE 84 mEq/L (98-107)
[2018-12-04 05:59] LABS: PHOSPHORUS 5.8 mg/dL (2.5-4.9)
[2018-12-04] MEDS: SUCRALFATE 1G TABLET PO SCH ×4 (07:38→21:00)
[2018-12-04] MEDS: OMEPRAZOLE 20MG CAPSULE EXTENDED RELEASE PO SCH ×2 (07:38→21:00)
[2018-12-04] MEDS: CHOLECALCIFEROL (VIT D3) 400 UNIT TABLET PO SCH (09:00)
[2018-12-04] MEDS: TAMSULOSIN HCL 0.4MG SR CAPSULE PO SCH (09:00)
[2018-12-04] MEDS ORDERED: DOBUTAMINE HCL 500 MG in SODIUM CHLORIDE 0.9% 210 ML IV SCH (13:00)
[2018-12-04] MEDS: SODIUM CHLORIDE 0.9% IV SCH (14:06)
[2018-12-04] MEDS: DOBUTAMINE HCL IV SCH (14:06)
[2018-12-04] MEDS: BIKTARVY PO SCH (21:01)
[2018-12-04] MEDS: HYDROCODONE/ACETAMINOPHEN 5/325MG TABLET PO PRN (23:10)
[2018-12-05] VITALS (81 sets, daily range): BP systolic 70–111; BP diastolic 35–73
[2018-12-05 06:37] LABS: BASOPHILS % 0.6 % (0.0-2.0); EOSINOPHILS % 1.7 % (0.0-5.0); HEMATOCRIT. 35.4 % (42.0-52.0); HEMOGLOBIN. 11.6 g/dL (14.0-18.0); MEAN CORPUSCULAR HEMOGLOBIN 30.6 pg (28.0-32.0); MEAN CORPUSCULAR VOLUME 93.7 fL (80.0-94.0); MEAN PLATELET VOLUME 9.6 fl (7.4-10.4); MONOCYTES % 10.7 % (2.0-8.0); PLATELET 126 x1000/uL (130-400); RED BLOOD CELL COUNT 3.78 mill/uL (4.7-6.1); RED CELL DISTRIBUTION WIDTH 16.6 % (11.6-14.6)
[2018-12-05 07:01] LABS: CHLORIDE 90 mEq/L (98-107)
[2018-12-05 07:18] LABS: PHOSPHORUS 4.8 mg/dL (2.5-4.9)
[2018-12-05] MEDS: IPRATROPIUM/ALBUTEROL 0.5-3(2.5)MG/3ML NEB HHN SCH ×4 (08:35→20:25)
[2018-12-05] MEDS: CHOLECALCIFEROL (VIT D3) 400 UNIT TABLET PO SCH (08:40)
[2018-12-05] MEDS: FAMOTIDINE 20MG/2ML VIAL IV SCH (08:40)
[2018-12-05] MEDS: SUCRALFATE 1G TABLET PO SCH ×4 (08:40→21:18)
[2018-12-05] MEDS: METOCLOPRAMIDE HCL 10MG/2ML VIAL IV PRN (08:41)
[2018-12-05] MEDS: TAMSULOSIN HCL 0.4MG SR CAPSULE PO SCH (08:41)
[2018-12-05] MEDS: DOPAMINE 800MG PREMIX (DOUBLE) 250 ML IV SCH ×3 (10:14→23:48)
[2018-12-05] MEDS: SODIUM CHLORIDE 0.9% IV SCH (12:45)
[2018-12-05] MEDS: DOBUTAMINE HCL IV SCH (12:45)
[2018-12-05] MEDS: BIKTARVY PO SCH (21:18)
[2018-12-06] VITALS (76 sets, daily range): BP systolic 71–143; BP diastolic 21–78
[2018-12-06] MEDS: IPRATROPIUM/ALBUTEROL 0.5-3(2.5)MG/3ML NEB HHN SCH ×4 (00:19→20:23)
[2018-12-06 05:54] LABS: BASOPHILS % 0.8 % (0.0-2.0); EOSINOPHILS % 1.5 % (0.0-5.0); HEMATOCRIT. 35.4 % (42.0-52.0); HEMOGLOBIN. 11.4 g/dL (14.0-18.0); LYMPHOCYTES % 10.4 % (20.0-50.0); MEAN CORPUSCULAR HEMOGLOBIN 30.1 pg (28.0-32.0); MEAN CORPUSCULAR VOLUME 93.3 fL (80.0-94.0); MEAN PLATELET VOLUME 9.3 fl (7.4-10.4); MONOCYTES % 11.3 % (2.0-8.0); PLATELET 148 x1000/uL (130-400); RED BLOOD CELL COUNT 3.79 mill/uL (4.7-6.1); RED CELL DISTRIBUTION WIDTH 16.7 % (11.6-14.6)
[2018-12-06 06:10] LABS: CHLORIDE 93 mEq/L (98-107)
[2018-12-06 06:23] LABS: PHOSPHORUS 4.8 mg/dL (2.5-4.9)
[2018-12-06] MEDS: DOPAMINE 800MG PREMIX (DOUBLE) 250 ML IV SCH ×3 (06:23→17:17)
[2018-12-06] MEDS: FAMOTIDINE 20MG/2ML VIAL IV SCH (08:57)
[2018-12-06] MEDS: TAMSULOSIN HCL 0.4MG SR CAPSULE PO SCH (08:58)
[2018-12-06] MEDS: SUCRALFATE 1G TABLET PO SCH ×4 (08:58→21:16)
[2018-12-06] MEDS: CHOLECALCIFEROL (VIT D3) 400 UNIT TABLET PO SCH (08:58)
[2018-12-06] MEDS: FUROSEMIDE 100MG/10ML VIAL IVP SCH ×2 (08:58→21:15)
[2018-12-06] MEDS: BIKTARVY PO SCH (21:16)
[2018-12-06] MEDS: DOBUTAMINE HCL IV SCH (21:16)
[2018-12-06] MEDS: SODIUM CHLORIDE 0.9% IV SCH (21:16)
[2018-12-06] MEDS: HYDROCODONE/ACETAMINOPHEN 5/325MG TABLET PO PRN (23:01)
[2018-12-07] VITALS (73 sets, daily range): BP systolic 36–113; BP diastolic 16–82
[2018-12-07] MEDS: IPRATROPIUM/ALBUTEROL 0.5-3(2.5)MG/3ML NEB HHN SCH ×6 (00:12→20:39)
[2018-12-07] MEDS: DOPAMINE 800MG PREMIX (DOUBLE) 250 ML IV SCH (02:25)
[2018-12-07 07:06] LABS: BASOPHILS % 0.8 % (0.0-2.0); EOSINOPHILS % 2.3 % (0.0-5.0); HEMATOCRIT. 34.3 % (42.0-52.0); HEMOGLOBIN. 11.1 g/dL (14.0-18.0); LYMPHOCYTES % 11.2 % (20.0-50.0); MEAN CORPUSCULAR HEMOGLOBIN 30.2 pg (28.0-32.0); MEAN CORPUSCULAR VOLUME 93.2 fL (80.0-94.0); MEAN PLATELET VOLUME 8.9 fl (7.4-10.4); MONOCYTES % 12.1 % (2.0-8.0); NEUTROPHILS % 73.6 % (40.0-76.0); PLATELET 147 x1000/uL (130-400); RED BLOOD CELL COUNT 3.68 mill/uL (4.7-6.1); RED CELL DISTRIBUTION WIDTH 16.7 % (11.6-14.6)
[2018-12-07 07:41] LABS: PHOSPHORUS 3.9 mg/dL (2.5-4.9)
[2018-12-07] MEDS ORDERED: MAGNESIUM CITRATE 300ML SOLUTION PO NR (10:00)
[2018-12-07] MEDS: FAMOTIDINE 20MG/2ML VIAL IV SCH (10:09)
[2018-12-07] MEDS: CHOLECALCIFEROL (VIT D3) 400 UNIT TABLET PO SCH (10:10)
[2018-12-07] MEDS: TAMSULOSIN HCL 0.4MG SR CAPSULE PO SCH (10:10)
[2018-12-07] MEDS: SUCRALFATE 1G TABLET PO SCH ×4 (10:10→21:21)
[2018-12-07] MEDS: ONDANSETRON HCL 4MG/2ML INJ IV PRN (10:49)
[2018-12-07] MEDS: FUROSEMIDE 100MG/10ML VIAL IVP SCH ×2 (11:11→16:58)
[2018-12-07] MEDS: DOBUTAMINE HCL IV SCH (15:34)
[2018-12-07] MEDS: SODIUM CHLORIDE 0.9% IV SCH (15:34)
[2018-12-07] MEDS: BIKTARVY PO SCH (21:21)
[2018-12-07] MEDS: HYDROCODONE/ACETAMINOPHEN 5/325MG TABLET PO PRN (23:55)
[2018-12-08] VITALS (105 sets, daily range): BP systolic 78–134; BP diastolic 23–92
[2018-12-08] MEDS: IPRATROPIUM/ALBUTEROL 0.5-3(2.5)MG/3ML NEB HHN SCH ×5 (00:28→23:59)
[2018-12-08] MEDS: FUROSEMIDE 100MG/10ML VIAL IVP SCH ×3 (01:27→18:01)
[2018-12-08] MEDS: DOPAMINE 800MG PREMIX (DOUBLE) 250 ML IV SCH (05:08)
[2018-12-08 05:34] LABS: BASOPHILS % 0.5 % (0.0-2.0); HEMATOCRIT. 34.5 % (42.0-52.0); HEMOGLOBIN. 11.2 g/dL (14.0-18.0); LYMPHOCYTES % 9.8 % (20.0-50.0); MEAN CORPUSCULAR HEMOGLOBIN 30.2 pg (28.0-32.0); MEAN CORPUSCULAR VOLUME 92.5 fL (80.0-94.0); MEAN PLATELET VOLUME 8.2 fl (7.4-10.4); MONOCYTES % 11.2 % (2.0-8.0); NEUTROPHILS % 75.5 % (40.0-76.0); PLATELET 161 x1000/uL (130-400); RED BLOOD CELL COUNT 3.73 mill/uL (4.7-6.1); RED CELL DISTRIBUTION WIDTH 16.7 % (11.6-14.6)
[2018-12-08 05:42] LABS: CHLORIDE 94 mEq/L (98-107)
[2018-12-08] MEDS: TAMSULOSIN HCL 0.4MG SR CAPSULE PO SCH (08:27)
[2018-12-08] MEDS: SUCRALFATE 1G TABLET PO SCH ×4 (08:27→21:02)
[2018-12-08] MEDS: CHOLECALCIFEROL (VIT D3) 400 UNIT TABLET PO SCH (08:27)
[2018-12-08] MEDS: FAMOTIDINE 20MG/2ML VIAL IV SCH (08:27)
[2018-12-08] MEDS: ONDANSETRON HCL 4MG/2ML INJ IV PRN (08:27)
[2018-12-08] MEDS: DOBUTAMINE HCL IV SCH ×2 (08:30→18:01)
[2018-12-08] MEDS: SODIUM CHLORIDE 0.9% IV SCH ×2 (08:30→18:01)
[2018-12-08] MEDS ORDERED: DOPAMINE 800MG PREMIX (DOUBLE) 250 ML IV SCH (09:00)
[2018-12-08] MEDS ORDERED: METOCLOPRAMIDE HCL 10MG/2ML VIAL IV NR (09:45)
[2018-12-08] MEDS: NOREPINEPHRINE 32 MG in DEXT 5% WATER 468 ML IV PRN (12:42)
[2018-12-08] MEDS ORDERED: DOBUTAMINE HCL IV SCH (16:30)
[2018-12-08] MEDS ORDERED: SODIUM CHLORIDE 0.9% IV SCH (16:30)
[2018-12-08] MEDS ORDERED: FENTANYL CITRATE/PF 50MCG/ML 2ML VIAL ONE (18:33)
[2018-12-08] MEDS ORDERED: DIPHENHYDRAMINE 50MG/ML VIAL ONE (18:39)
[2018-12-08] MEDS ORDERED: MIDAZOLAM HCL 5 MG/5 ML VIAL ONE (18:39)
[2018-12-08] MEDS ORDERED: DIAZEPAM 5 MG/ML 2ML CPJ IV NR (18:45)
[2018-12-08] MEDS ORDERED: DOPAMINE 800MG PREMIX (DOUBLE) 250 ML IV PRN (19:00)
[2018-12-08] MEDS ORDERED: FENTANYL CITRATE/PF 50MCG/ML 2ML VIAL IV ONE (19:20)
[2018-12-08] MEDS ORDERED: MIDAZOLAM HCL 5 MG/5 ML VIAL IV ONE (19:20)
[2018-12-08] MEDS: BIKTARVY PO SCH (21:02)
[2018-12-09] VITALS (95 sets, daily range): BP systolic 73–168; BP diastolic 27–103
[2018-12-09] MEDS: FUROSEMIDE 100MG/10ML VIAL IVP SCH ×3 (01:05→17:18)
[2018-12-09] MEDS: DOBUTAMINE HCL IV SCH ×2 (02:22→09:05)
[2018-12-09] MEDS: SODIUM CHLORIDE 0.9% IV SCH ×2 (02:22→09:05)
[2018-12-09] MEDS: IPRATROPIUM/ALBUTEROL 0.5-3(2.5)MG/3ML NEB HHN SCH ×5 (04:26→21:21)
[2018-12-09 06:05] LABS: HEMATOCRIT. 31.6 % (42.0-52.0); HEMOGLOBIN. 10.3 g/dL (14.0-18.0); MEAN CORPUSCULAR HEMOGLOBIN 30.2 pg (28.0-32.0); MEAN PLATELET VOLUME 7.9 fl (7.4-10.4); PLATELET 137 x1000/uL (130-400)
[2018-12-09 06:26] LABS: PHOSPHORUS 3.4 mg/dL (2.5-4.9)
[2018-12-09] MEDS: NOREPINEPHRINE 32 MG in DEXT 5% WATER 468 ML IV PRN (07:30)
[2018-12-09] MEDS ORDERED: NOREPINEPHRINE 32 MG in DEXT 5% WATER 468 ML IV PRN (07:41)
[2018-12-09] MEDS ORDERED: ALBUMIN HUMAN 12.5G/250ML (5%) IV PRN ×2 (08:45→10:45)
[2018-12-09] MEDS: TAMSULOSIN HCL 0.4MG SR CAPSULE PO SCH ×3 (09:00→13:34)
[2018-12-09] MEDS: CHOLECALCIFEROL (VIT D3) 400 UNIT TABLET PO SCH (09:06)
[2018-12-09 09:09] LABS: BG BASE EXCESS -2.1 mmol/L (-2.0-2.0); BG CARBOXYHEMOGLOBIN 1.1 % (0.5-1.5); BG DEOXYHEMOGLOBIN 4.8 % (0.0-5.0); BG FRACTION INSPIRED OXYGEN 21; BG HCO3 ACT 23.5 mmol/L (22.0-26.0); BG METHEMOGLOBIN 0.3 % (0.0-1.5); BG OXYGEN SATURATION 95.1 % (92.0-98.5); BG OXYHEMOGLOBIN 93.8 % (94.0-97.0); BG PCO2 43.7 mmHg (35.0-45.0); BG PH 7.349 (7.350-7.450); BG SAMPLE SITE RIGHT RADIAL; BG TOTAL HEMOGLOBIN 11.1 g/dL (12.0-18.0); BG VENT MODE ROOM AIR
[2018-12-09] MEDS: OMEPRAZOLE 20MG CAPSULE EXTENDED RELEASE PO SCH ×2 (09:16→20:39)
[2018-12-09] MEDS ORDERED: THROAT LOZENGES-BENZOCAINE/MENTH/CETYLPYRD CL LOZENGES MM PRN (10:00)
[2018-12-09 10:50] LABS: PLATELET ESTIMATE NORMAL
[2018-12-09] MEDS: HYDROCODONE/ACETAMINOPHEN 5/325MG TABLET PO PRN (20:40)
[2018-12-09] MEDS: BIKTARVY PO SCH (20:40)
[2018-12-10] VITALS (95 sets, daily range): BP systolic 70–123; BP diastolic 40–69
[2018-12-10] MEDS: METOCLOPRAMIDE HCL 10MG/2ML VIAL IV PRN (00:23)
[2018-12-10] MEDS: FUROSEMIDE 100MG/10ML VIAL IVP SCH ×3 (00:31→16:04)
[2018-12-10] MEDS: SODIUM CHLORIDE 0.9% IV SCH ×2 (00:31→14:09)
[2018-12-10] MEDS: DOBUTAMINE HCL IV SCH ×2 (00:31→14:09)
[2018-12-10] MEDS: IPRATROPIUM/ALBUTEROL 0.5-3(2.5)MG/3ML NEB HHN SCH ×6 (00:39→22:15)
[2018-12-10 05:07] LABS: HEMATOCRIT. 30.9 % (42.0-52.0); HEMOGLOBIN. 10.1 g/dL (14.0-18.0); MEAN CORPUSCULAR HEMOGLOBIN 30.3 pg (28.0-32.0); MEAN CORPUSCULAR VOLUME 92.3 fL (80.0-94.0); MEAN PLATELET VOLUME 8.1 fl (7.4-10.4); PLATELET 128 x1000/uL (130-400); RED BLOOD CELL COUNT 3.35 mill/uL (4.7-6.1); RED CELL DISTRIBUTION WIDTH 16.8 % (11.6-14.6)
[2018-12-10 05:17] LABS: CHLORIDE 96 mEq/L (98-107)
[2018-12-10 05:27] LABS: PHOSPHORUS 2.8 mg/dL (2.5-4.9)
[2018-12-10] MEDS ORDERED: LACTULOSE 20G/30ML UDC PO PRN (06:00)
[2018-12-10 06:36] LABS: INR 1.4; PROTHROMBIN TIME 14.2 sec (9.6-11.0)
[2018-12-10] MEDS ORDERED: NOREPINEPHRINE 32 MG in DEXT 5% WATER 468 ML IV PRN (08:23)
[2018-12-10] MEDS: OMEPRAZOLE 20MG CAPSULE EXTENDED RELEASE PO SCH ×2 (08:31→21:01)
[2018-12-10] MEDS: TAMSULOSIN HCL 0.4MG SR CAPSULE PO SCH (08:31)
[2018-12-10] MEDS: CHOLECALCIFEROL (VIT D3) 400 UNIT TABLET PO SCH (08:31)
[2018-12-10] MEDS: DOCUSATE SODIUM 100MG CAPSULE PO SCH ×2 (08:31→16:04)
[2018-12-10] MEDS: MIDODRINE HCL 2.5MG TABLET PO SCH ×3 (08:47→16:04)
[2018-12-10 10:28] LABS: PLATELET ESTIMATE SLIGHTLY DECREASED
[2018-12-10] MEDS ORDERED: ENOXAPARIN 40MG/0.4ML SYR SUBCUT NR (11:45)
[2018-12-10] MEDS: ACETAMINOPHEN 325MG TABLET PO PRN (16:20)
[2018-12-10] MEDS: BIKTARVY PO SCH (21:01)
[2018-12-10] MEDS: CALCIUM CARBONATE 500MG TABLET CHEW PO PRN (21:01)
[2018-12-11] VITALS (82 sets, daily range): BP systolic 47–122; BP diastolic 20–79
[2018-12-11] MEDS: IPRATROPIUM/ALBUTEROL 0.5-3(2.5)MG/3ML NEB HHN SCH ×6 (00:14→20:47)
[2018-12-11] MEDS: FUROSEMIDE 100MG/10ML VIAL IVP SCH ×3 (00:18→17:00)
[2018-12-11] MEDS ORDERED: NOREPINEPHRINE 32 MG in DEXT 5% WATER 468 ML IV PRN (01:45)
[2018-12-11] MEDS: HYDROCODONE/ACETAMINOPHEN 5/325MG TABLET PO PRN (02:22)
[2018-12-11] MEDS: DOBUTAMINE HCL IV SCH ×2 (02:56→14:07)
[2018-12-11] MEDS: SODIUM CHLORIDE 0.9% IV SCH ×2 (02:56→14:07)
[2018-12-11 05:44] LABS: BASOPHILS % 0.5 % (0.0-2.0); EOSINOPHILS % 2.5 % (0.0-5.0); HEMATOCRIT. 30.6 % (42.0-52.0); HEMOGLOBIN. 9.9 g/dL (14.0-18.0); LYMPHOCYTES % 7.8 % (20.0-50.0); MEAN CORPUSCULAR HEMOGLOBIN 29.7 pg (28.0-32.0); MEAN CORPUSCULAR VOLUME 92.2 fL (80.0-94.0); MEAN PLATELET VOLUME 8.4 fl (7.4-10.4); MONOCYTES % 11.4 % (2.0-8.0); NEUTROPHILS % 77.8 % (40.0-76.0); PLATELET 139 x1000/uL (130-400); RED BLOOD CELL COUNT 3.32 mill/uL (4.7-6.1); RED CELL DISTRIBUTION WIDTH 17.1 % (11.6-14.6)
[2018-12-11 06:12] LABS: PHOSPHORUS 3.2 mg/dL (2.5-4.9)
[2018-12-11] MEDS: MIDODRINE HCL 2.5MG TABLET PO SCH (08:04)
[2018-12-11] MEDS: OMEPRAZOLE 20MG CAPSULE EXTENDED RELEASE PO SCH ×2 (08:04→20:19)
[2018-12-11] MEDS: DOCUSATE SODIUM 100MG CAPSULE PO SCH ×3 (09:00→17:00)
[2018-12-11] MEDS ORDERED: ENOXAPARIN 40MG/0.4ML SYR SUBCUT NR (10:30)
[2018-12-11] MEDS: MUPIROCIN 2% OINT 22GM TOP SCH ×2 (13:05→17:01)
[2018-12-11] MEDS: CHOLECALCIFEROL (VIT D3) 400 UNIT TABLET PO SCH (14:32)
[2018-12-11] MEDS: TAMSULOSIN HCL 0.4MG SR CAPSULE PO SCH (14:32)
[2018-12-11] MEDS: MIDODRINE HCL 5MG TABLET PO SCH ×2 (14:32→17:01)
[2018-12-11] MEDS: ACETAMINOPHEN 325MG TABLET PO PRN (17:00)
[2018-12-11] MEDS: BIKTARVY PO SCH (20:19)
[2018-12-12] VITALS (73 sets, daily range): BP systolic 69–130; BP diastolic 31–91
[2018-12-12] MEDS: IPRATROPIUM/ALBUTEROL 0.5-3(2.5)MG/3ML NEB HHN SCH ×6 (00:34→21:15)
[2018-12-12] MEDS: ACETAMINOPHEN 325MG TABLET PO PRN (00:39)
[2018-12-12] MEDS: FUROSEMIDE 100MG/10ML VIAL IVP SCH ×3 (02:05→17:52)
[2018-12-12] MEDS ORDERED: COSYNTROPIN 0.25MG/ML VIAL IV NR (05:30)
[2018-12-12 06:40] LABS: INR 1.4; PROTHROMBIN TIME 14.2 sec (9.6-11.0)
[2018-12-12 06:56] LABS: HEMATOCRIT. 29.5 % (42.0-52.0); HEMOGLOBIN. 9.6 g/dL (14.0-18.0); MEAN CORPUSCULAR HEMOGLOBIN 29.8 pg (28.0-32.0); MEAN PLATELET VOLUME 8.4 fl (7.4-10.4); PLATELET 127 x1000/uL (130-400); RED BLOOD CELL COUNT 3.21 mill/uL (4.7-6.1); RED CELL DISTRIBUTION WIDTH 16.6 % (11.6-14.6)
[2018-12-12] MEDS: OMEPRAZOLE 20MG CAPSULE EXTENDED RELEASE PO SCH ×2 (08:04→21:48)
[2018-12-12] MEDS: DOCUSATE SODIUM 100MG CAPSULE PO SCH ×2 (08:04→17:00)
[2018-12-12] MEDS: TAMSULOSIN HCL 0.4MG SR CAPSULE PO SCH (08:05)
[2018-12-12] MEDS: CHOLECALCIFEROL (VIT D3) 400 UNIT TABLET PO SCH (08:05)
[2018-12-12] MEDS: MUPIROCIN 2% OINT 22GM TOP SCH ×2 (08:05→17:00)
[2018-12-12] MEDS: MIDODRINE HCL 5MG TABLET PO SCH ×3 (08:05→17:52)
[2018-12-12] MEDS: HYDROCODONE/ACETAMINOPHEN 10/325MG TABLET PO PRN ×2 (09:26→23:41)
[2018-12-12] MEDS ORDERED: MIDODRINE HCL 5MG TABLET PO NR (10:30)
[2018-12-12] MEDS ORDERED: ENOXAPARIN 40MG/0.4ML SYR SUBCUT NR (10:45)
[2018-12-12 14:14] LABS: PLATELET ESTIMATE SLIGHTLY DECREASED
[2018-12-12] MEDS: SODIUM CHLORIDE 0.9% IV SCH (17:00)
[2018-12-12] MEDS: DOBUTAMINE HCL IV SCH (17:00)
[2018-12-12] MEDS ORDERED: VANCOMYCIN 2,000 MG in DEXT 5% WATER 500 ML IV NR (18:00)
[2018-12-12] MEDS: BIKTARVY PO SCH (21:48)
[2018-12-13] VITALS (73 sets, daily range): BP systolic 39–135; BP diastolic 17–79
[2018-12-13] MEDS: IPRATROPIUM/ALBUTEROL 0.5-3(2.5)MG/3ML NEB HHN SCH ×6 (00:22→21:15)
[2018-12-13] MEDS: FUROSEMIDE 100MG/10ML VIAL IVP SCH ×3 (00:43→21:09)
[2018-12-13] MEDS: SODIUM CHLORIDE 0.9% IV SCH ×2 (04:27→12:08)
[2018-12-13] MEDS: DOBUTAMINE HCL IV SCH ×2 (04:27→12:08)
[2018-12-13 06:05] LABS: HEMATOCRIT. 30.4 % (42.0-52.0); HEMOGLOBIN. 9.8 g/dL (14.0-18.0); MEAN CORPUSCULAR HEMOGLOBIN 29.6 pg (28.0-32.0); MEAN CORPUSCULAR VOLUME 91.9 fL (80.0-94.0); MEAN PLATELET VOLUME 8.5 fl (7.4-10.4); PLATELET 161 x1000/uL (130-400); RED BLOOD CELL COUNT 3.31 mill/uL (4.7-6.1); RED CELL DISTRIBUTION WIDTH 17.2 % (11.6-14.6)
[2018-12-13 06:38] LABS: PHOSPHORUS 2.9 mg/dL (2.5-4.9)
[2018-12-13] MEDS: DOCUSATE SODIUM 100MG CAPSULE PO SCH ×2 (09:00→17:00)
[2018-12-13 09:18] LABS: PLATELET ESTIMATE NORMAL
[2018-12-13] MEDS: CHOLECALCIFEROL (VIT D3) 400 UNIT TABLET PO SCH (09:30)
[2018-12-13] MEDS: TAMSULOSIN HCL 0.4MG SR CAPSULE PO SCH (09:31)
[2018-12-13] MEDS: MIDODRINE HCL 5MG TABLET PO SCH ×3 (09:32→19:26)
[2018-12-13] MEDS: MUPIROCIN 2% OINT 22GM TOP SCH ×2 (09:37→17:00)
[2018-12-13] MEDS: OMEPRAZOLE 20MG CAPSULE EXTENDED RELEASE PO SCH ×2 (09:39→21:05)
[2018-12-13] MEDS ORDERED: ENOXAPARIN 40MG/0.4ML SYR SUBCUT NR (11:00)
[2018-12-13] MEDS ORDERED: NOREPINEPHRINE 32 MG in DEXT 5% WATER 468 ML IV PRN (17:00)
[2018-12-13] MEDS: NOREPINEPHRINE 32 MG in DEXT 5% WATER 468 ML IV PRN (18:38)
[2018-12-13] MEDS ORDERED: DOBUTAMINE HCL IV SCH (21:00)
[2018-12-13] MEDS ORDERED: SODIUM CHLORIDE 0.9% IV SCH (21:00)
[2018-12-13] MEDS: BIKTARVY PO SCH (21:06)
[2018-12-13] MEDS: HYDROCODONE/ACETAMINOPHEN 10/325MG TABLET PO PRN (22:13)
[2018-12-14] VITALS (81 sets, daily range): BP systolic 58–124; BP diastolic 17–78
[2018-12-14] MEDS: IPRATROPIUM/ALBUTEROL 0.5-3(2.5)MG/3ML NEB HHN SCH ×5 (00:27→19:58)
[2018-12-14 04:40] LABS: HEMATOCRIT. 29.8 % (42.0-52.0); HEMOGLOBIN. 9.6 g/dL (14.0-18.0); MEAN CORPUSCULAR HEMOGLOBIN 29.6 pg (28.0-32.0); MEAN CORPUSCULAR VOLUME 92.1 fL (80.0-94.0); MEAN PLATELET VOLUME 8.7 fl (7.4-10.4); PLATELET 187 x1000/uL (130-400); RED BLOOD CELL COUNT 3.23 mill/uL (4.7-6.1); RED CELL DISTRIBUTION WIDTH 16.9 % (11.6-14.6)
[2018-12-14 05:52] LABS: NUCLEATED RED BLOOD CELLS 2 /100 WBC; PLATELET ESTIMATE NORMAL
[2018-12-14] MEDS: OMEPRAZOLE 20MG CAPSULE EXTENDED RELEASE PO SCH ×2 (08:52→21:12)
[2018-12-14] MEDS: FUROSEMIDE 100MG/10ML VIAL IVP SCH ×2 (08:52→21:12)
[2018-12-14] MEDS: DOCUSATE SODIUM 100MG CAPSULE PO SCH ×2 (08:54→17:00)
[2018-12-14] MEDS: TAMSULOSIN HCL 0.4MG SR CAPSULE PO SCH (08:54)
[2018-12-14] MEDS: MIDODRINE HCL 5MG TABLET PO SCH ×3 (08:55→17:06)
[2018-12-14] MEDS: CHOLECALCIFEROL (VIT D3) 400 UNIT TABLET PO SCH (08:56)
[2018-12-14] MEDS: MUPIROCIN 2% OINT 22GM TOP SCH ×2 (08:56→17:05)
[2018-12-14] MEDS ORDERED: DOBUTAMINE HCL IV SCH (10:17)
[2018-12-14] MEDS ORDERED: SODIUM CHLORIDE 0.9% IV SCH (10:17)
[2018-12-14] MEDS ORDERED: VANCOMYCIN 2,000 MG in DEXT 5% WATER 500 ML IV NR (11:00)
[2018-12-14] MEDS: ENOXAPARIN 40MG/0.4ML SYR SUBCUT SCH (11:13)
[2018-12-14] MEDS: HYDROCODONE/ACETAMINOPHEN 10/325MG TABLET PO PRN (20:01)
[2018-12-14] MEDS: BIKTARVY PO SCH (21:12)
[2018-12-15] VITALS (58 sets, daily range): BP systolic 53–139; BP diastolic 37–75
[2018-12-15] MEDS: NOREPINEPHRINE 32 MG in DEXT 5% WATER 468 ML IV PRN (00:06)
[2018-12-15] MEDS: IPRATROPIUM/ALBUTEROL 0.5-3(2.5)MG/3ML NEB HHN SCH ×5 (04:08→16:30)
[2018-12-15 05:29] LABS: HEMATOCRIT. 30.6 % (42.0-52.0); HEMOGLOBIN. 9.8 g/dL (14.0-18.0); MEAN CORPUSCULAR HEMOGLOBIN 29.8 pg (28.0-32.0); MEAN CORPUSCULAR VOLUME 92.6 fL (80.0-94.0); MEAN PLATELET VOLUME 8.5 fl (7.4-10.4); PLATELET 184 x1000/uL (130-400); RED CELL DISTRIBUTION WIDTH 16.9 % (11.6-14.6)
[2018-12-15 05:46] LABS: PHOSPHORUS 3.1 mg/dL (2.5-4.9)
[2018-12-15 07:16] LABS: PLATELET ESTIMATE NORMAL
[2018-12-15] MEDS: TAMSULOSIN HCL 0.4MG SR CAPSULE PO SCH (08:55)
[2018-12-15] MEDS: OMEPRAZOLE 20MG CAPSULE EXTENDED RELEASE PO SCH (08:56)
[2018-12-15] MEDS: FUROSEMIDE 100MG/10ML VIAL IVP SCH (08:57)
[2018-12-15] MEDS: MIDODRINE HCL 5MG TABLET PO SCH ×3 (08:58→16:26)
[2018-12-15] MEDS: MUPIROCIN 2% OINT 22GM TOP SCH ×2 (08:59→17:08)
[2018-12-15] MEDS: CHOLECALCIFEROL (VIT D3) 400 UNIT TABLET PO SCH (09:00)
[2018-12-15] MEDS: DOCUSATE SODIUM 100MG CAPSULE PO SCH ×2 (09:00→17:00)
[2018-12-15] MEDS: ENOXAPARIN 40MG/0.4ML SYR SUBCUT SCH (11:07)
[2018-12-15] MEDS ORDERED: ATOVAQUONE 750 MG/5 ML ORAL.SUSP PO SCH (15:00)
[2018-12-15 15:18] LABS: INR 1.3; PROTHROMBIN TIME 13.1 sec (9.6-11.0)
== END 2018-12-15 17:58 | disposition hospice, home (50) | DRG 890 ==
LOC: ER 17:28 → 3WST 19:13 → EDBEDREQSVC 19:15 → EDBEDREQ 19:15 → ENRESERV 20:24 → 3WST 11-19 00:37 → CVICU 12-01 12:05 → UNDODISIN 12-06 19:57
PROVIDERS: ADMIT Internal Medicine; ATTEND Internal Medicine
PROC: 5A09357 Assistance with Respiratory Ventilation, Less than 24 Consecutive Hours, Continuous Positive Airway Pressure (ICD-10-PCS; 2018-11-18)
PROC: 02HV33Z Insertion of Infusion Device into Superior Vena Cava, Percutaneous Approach (ICD-10-PCS; 2018-11-24)
PROC: B548ZZA Ultrasonography of Superior Vena Cava, Guidance (ICD-10-PCS; 2018-11-24)
PROC: B548ZZA Ultrasonography of Superior Vena Cava, Guidance (ICD-10-PCS; 2018-12-01)
PROC: 02HV33Z Insertion of Infusion Device into Superior Vena Cava, Percutaneous Approach (ICD-10-PCS; 2018-12-01)
PROC: 5A1D70Z Performance of Urinary Filtration, Intermittent, Less than 6 Hours Per Day (ICD-10-PCS; 2018-12-04)
PROC: 5A1D70Z Performance of Urinary Filtration, Intermittent, Less than 6 Hours Per Day (ICD-10-PCS; 2018-12-08)
PROC: 5A1D70Z Performance of Urinary Filtration, Intermittent, Less than 6 Hours Per Day (ICD-10-PCS; 2018-12-09)
PROC: 5A1D70Z Performance of Urinary Filtration, Intermittent, Less than 6 Hours Per Day (ICD-10-PCS; 2018-12-10)
PROC: 0DJ08ZZ Inspection of Upper Intestinal Tract, Via Natural or Artificial Opening Endoscopic (ICD-10-PCS; principal; 2018-12-12)
PROC: 5A1D70Z Performance of Urinary Filtration, Intermittent, Less than 6 Hours Per Day (ICD-10-PCS; 2018-12-12)
PROC: 5A1D70Z Performance of Urinary Filtration, Intermittent, Less than 6 Hours Per Day (ICD-10-PCS; 2018-12-13)
DX: A41.02 Sepsis due to Methicillin resistant Staphylococcus aureus (principal); B20 Human immunodeficiency virus [HIV] disease; J96.01 Acute respiratory failure with hypoxia; R57.0 Cardiogenic shock; N17.0 Acute kidney failure with tubular necrosis; D68.9 Coagulation defect, unspecified; R65.20 Severe sepsis without septic shock; E11.22 Type 2 diabetes mellitus with diabetic chronic kidney disease; N18.3 Chronic kidney disease, stage 3 (moderate); I50.23 Acute on chronic systolic (congestive) heart failure; E11.43 Type 2 diabetes mellitus with diabetic autonomic (poly)neuropathy; D69.6 Thrombocytopenia, unspecified; E44.1 Mild protein-calorie malnutrition; I13.0 Hypertensive heart and chronic kidney disease with heart failure and stage 1 through stage 4 chronic kidney disease, or unspecified chronic kidney disease; D64.9 Anemia, unspecified; E87.1 Hypo-osmolality and hyponatremia; J45.909 Unspecified asthma, uncomplicated; I42.0 Dilated cardiomyopathy; I25.10 Atherosclerotic heart disease of native coronary artery without angina pectoris; I44.7 Left bundle-branch block, unspecified; I48.0 Paroxysmal atrial fibrillation; J44.9 Chronic obstructive pulmonary disease, unspecified; K21.9 Gastro-esophageal reflux disease without esophagitis; Z66 Do not resuscitate; R74.0 Nonspecific elevation of levels of transaminase and lactic acid dehydrogenase [LDH]; R16.0 Hepatomegaly, not elsewhere classified; Z51.5 Encounter for palliative care; K29.71 Gastritis, unspecified, with bleeding; K29.81 Duodenitis with bleeding; L03.012 Cellulitis of left finger; R13.10 Dysphagia, unspecified; K56.7 Ileus, unspecified; R18.8 Other ascites; Z86.718 Personal history of other venous thrombosis and embolism; Z79.899 Other long term (current) drug therapy; Z82.49 Family history of ischemic heart disease and other diseases of the circulatory system; Z87.891 Personal history of nicotine dependence; Z95.810 Presence of automatic (implantable) cardiac defibrillator; Z88.0 Allergy status to penicillin; I25.2 Old myocardial infarction; Z68.38 Body mass index [BMI] 38.0-38.9, adult
CPT/HCPCS: 36415; 36569; 36600; 71045; 74018; 74246; 76700; 76705; 76937; 80048; 80076; 80202; 80305; 82248; 82375; 82533; 82550; 82570; 82805; 82962; 83735; 83880; 83935; 84100; 84300; 84443; 84484; 84540; 85014; 85018; 86705; 86709; 86803; 87077; 87186; 87340; 92610; 93005; 93306; 93970; 94003; 94640; 94660; 96374; 97116; 97162; 99291; A6261; C1725; C1752; C1893; C9113; J0834; J1200; J1250; J1265; J1650; J1940; J2250; J2405; J2765; J3010; J3370; J3490; J7030; J7040; J7050; J7060; J7611; J7620; P9041; A4315